=== PATIENT | male | born 1955 | race African-American/Black ===

== ENCOUNTER 2017-10-28 10:52 | Inpatient (IN) | payer OTHER ==
[2017-10-28 11:19] VITALS: BMI 29.3
--- NOTE | 2017-10-28 15:16 | HP ---
CIWA Score - CIWA Score Nausea/Vomitin Muscle Tremors: 3 Anxiety: 3 Agitation: 3 Paroxysmal Sweats: 1-Minimal Palms Moist Orientation: 0-Oriented Tacttile Disturbances: 1-Very Mild Itch/Numbness Auditory Disturbances: 1-Very Mild Visual Disturbances: 0-None Headache: 2-Mild CIWA-Ar Total Score: 17 Admission ROS BHS - HPI Chief Complaint: i need help to stop drinking alcohol Allergies/Adverse Reactions: Allergies Allergy/AdvReac Type Severity Reaction Status Date / Time No Known Allergies Allergy Verified 05/30/17 20:31 History of Present Illness: this 62 years old male with alcohol dependence,seeking detox,withdrawal symptom, last detox 05/30/17 to 06/03/17 type 2 dm,hypertension multiple admissions in detox,but relapsing longest period of sobriety 9 months - Ebola screening Have you traveled outside of the country in the last 21 days: Yes Have you been sick,other than usual withdrawal symptoms: No - Review of Systems Constitutional: Loss of Appetite, Malaise, Night Sweats, Changes in sleep, Weakness, Unintentional Wgt. Loss EENT: reports: Nose Congestion Respiratory: reports: No Symptoms reported Cardiac: reports: No Symptoms Reported GI: reports: Diarrhea, Nausea, Vomiting, Abdominal cramping : reports: No Symptoms Reported Musculoskeletal: reports: Back Pain, Muscle Pain Integumentary: reports: Dryness Neuro: reports: Headache, Tremors Hematology: reports: No Symptoms Reported Psychiatric: reports: No Sypmtoms Reported, Judgement Intact, Mood/Affect Appropiate, Orientated x3 Patient History - Patient Medical History Hx Anemia: No Hx Asthma: No Hx Chronic Obstructive Pulmonary Disease (COPD): No Hx Cancer: No Hx Cardiac Disorders: Yes (CHF) Hx Congestive Heart Failure: No Hx Hypertension: Yes (on meds.) Hx Hypercholesterolemia: Yes Hx Pacemaker: No HX Cerebrovascular Accident: No Hx Seizures: No Hx Dementia: No Hx Diabetes: Yes (diet controlled BGM 171mg/dl) Hx Gastrointestinal Disorders: No Hx Liver Disease: No Hx Genitourinary Disorders: No Hx Sexually Transmitted Disorders: No Hx Renal Disease (ESRD): No Hx Thyroid Disease: No Hx Human Immunodeficiency Virus (HIV): No (last 2016 negative) Hx Hepatitis C: No Hx Depression: No Hx Suicide Attempt: No Hx Bipolar Disorder: No Hx Schizophrenia: No Other Medical History: no suicidal,no homicidal - Patient Surgical History Past Surgical History: Yes Hx Neurologic Surgery: No Hx Cataract Extraction: No Hx Cardiac Surgery: No Hx Lung Surgery: No Hx Breast Surgery: No Hx Breast Biopsy: No Hx Abdominal Surgery: No Hx Appendectomy: No Hx Cholecystectomy: No Hx Genitourinary Surgery: No Hx Orthopedic Surgery: Yes (fracture patellar 1977 both) Hx Hysterectomy: No Anesthesia Reaction: No - PPD History Previous Implant?: Yes Documented Results: Negative w/proof Implanted On Prior [facility] Admission?: Yes Date: 06/01/17 Results: 0 mm PPD to be Administered?: No - Smoking Cessation Smoking history: Former smoker Have you smoked in the past 12 months: No If you are a former smoker, when did you quit?: 1999 Hx Chewing Tobacco Use: No Initiated information on smoking cessation: No - Substance & Tx. History Hx Alcohol Use: Yes Hx Substance Use: Yes Substance Use Type: Alcohol, Marijuana Hx Substance Use Treatment: Yes ([facility] 05/30/17 to 06/03/17) - Substances Abused Alcohol Route: Oral Frequency: Daily Amount used: 1 and 1/2 pints vodka Age of first use: 30 Date of Last Use: 10/28/17 Marijuana/Hashish Route: Smoking Frequency: Daily Amount used: 1 joint Age of first use: 18 Date of Last Use: 10/27/17 Family Disease History - Family Disease History Family Disease History: Other: Father (, unknown ), Mother (, [place] ) Admission Physical Exam S - Vital Signs Vital Signs: Vital Signs - 24 hr 10/28/17 11:16 Temperature 98 F Pulse Rate 83 Respiratory 20 Rate Blood Pressure 146/96 - Physical General Appearance: Yes: Moderate Distress, Tremorous, Irritable, Sweating, Anxious HEENTM: Yes: Normal ENT Inspection, AMILCAR, Pharynx Normal Respiratory: Yes: Lungs Clear, Normal Breath Sounds, No Respiratory Distress Breast: Yes: Within Normal Limits Cardiology: Yes: Within Normal Limits, Regular Rhythm, Regular Rate, S1, S2 Abdominal: Yes: Within Normal Limits, Normal Bowel Sounds, Non Tender, Flat, Soft Genitourinary: Yes: Within Normal Limits Back: Yes: Within Normal Limits Extremities: Yes: Normal Range of Motion, Tremors 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
[2017-10-28] MEDS ORDERED: P-EPHED 60MG/TRIPROLIDI 2.5MG TABLET PO PRN (15:24)
[2017-10-28] MEDS ORDERED: MAG HYDROX/AL HYDROX/SIMETH 30 ML UNIT-DOSE CUP PO PRN (15:24)
[2017-10-28] MEDS ORDERED: guaiFENesin/D-METHORPHAN HB 10 ML UNIT-DOSE CUPS PO PRN (15:24)
[2017-10-28] MEDS ORDERED: MAGNESIUM CITRATE 300 ML BOTTLE PO PRN (15:24)
[2017-10-28] MEDS ORDERED: MAGNESIUM HYDROX 2400MG/30ML ORAL SUSPENSION 30 ML CUP PO PRN (15:24)
[2017-10-28] MEDS ORDERED: IBUPROFEN 400 MG TABLET (FP) PO PRN (15:24)
[2017-10-28] MEDS ORDERED: ACETAMINOPHEN 325 MG TABLET (FP) PO PRN (15:24)
[2017-10-28] MEDS ORDERED: MENTHOL/PHENOL 1 EACH UD MM PRN (15:24)
[2017-10-28] MEDS ORDERED: chlordiazePOXIDE HCL 25 MG CAPSULE PO PRN (15:24)
[2017-10-28] MEDS ORDERED: LOPERAMIDE HCL 2 MG CAPSULE PO PRN (15:24)
--- NOTE | 2017-10-28 15:30 | PN ---
BHS Progress Note Note: patient also has bph,type 2 dm,hypertension
[2017-10-28] MEDS: chlordiazePOXIDE HCL 25 MG CAPSULE PO SCH ×2 (18:34→22:31)
[2017-10-28] MEDS: metoPROLOL SUCCINATE 25 MG TAB.SR.24H (FP) PO SCH (22:30)
[2017-10-28] MEDS: MELATONIN 5 MG TABLETS PO PRN (22:31)
[2017-10-28] MEDS: THIAMINE HCL 100 MG TABLET (FP) PO SCH (22:31)
[2017-10-28 23:27] LABS: URINE APPEARANCE CLEAR; URINE BILIRUBIN NEGATIVE (<2.0 mg/dL); URINE COLOR LTYELLOW; URINE GLUCOSE (UA) NEGATIVE (NEGATIVE); URINE KETONE NEGATIVE (NEGATIVE); URINE LEUK ESTERASE NEGATIVE (NEGATIVE); URINE NITRITE NEGATIVE (NEGATIVE); URINE PROTEIN NEGATIVE (NEGATIVE); URINE UROBILINOGEN NEGATIVE mg/dL (0.2-1.0)
[2017-10-28 23:31] LABS: URINE HYALINE CAST 2 /lpf
[2017-10-29] MEDS: chlordiazePOXIDE HCL 25 MG CAPSULE PO SCH ×4 (06:16→22:29)
[2017-10-29 09:51] LABS: HEMATOCRIT 38.2 % (35.4-49); HEMOGLOBIN 12.8 GM/dL (11.7-16.9); MCH 31.4 pg (25.7-33.7); MCHC 33.4 g/dl (32.0-35.9); MEAN PLT VOLUME 8.9 fl (7.5-11.1); PLATELET COUNT 162 K/MM3 (134-434); RBC 4.07 M/mm3 (4.00-5.60); RDW 15.7 % (11.9-15.9); WHITE BLOOD COUNT 4.3 K/mm3 (4.0-10.0)
[2017-10-29] MEDS: ALLOPURINOL 100 MG TABLET (FP) PO SCH (10:18)
[2017-10-29] MEDS: PRENATAL VITAMINS W/ FOLIC ACID TABLET (FP) PO SCH (10:18)
[2017-10-29] MEDS: LOSARTAN POTASSIUM 25 MG TABLET PO SCH (10:18)
[2017-10-29] MEDS: ASPIRIN 81 MG CHEWABLE TABLETS PO SCH (10:19)
[2017-10-29] MEDS: metoPROLOL SUCCINATE 25 MG TAB.SR.24H (FP) PO SCH ×2 (10:19→22:29)
[2017-10-29] MEDS: TAMSULOSIN HCL 0.4 MG CAP.ER.24H (FP) PO SCH (10:19)
[2017-10-29 10:22] LABS: CHLORIDE 101 mmol/L (98-107); POTASSIUM 4.5 mmol/L (3.5-5.1); SODIUM 134 mmol/L (136-145)
[2017-10-29 10:49] LABS: ALBUMIN 3.8 g/dl (3.4-5.0); ALK PHOS 110 U/L (45-117); ANION GAP 11 MMOL/L (8-16); BILIRUBIN,TOTAL 0.5 mg/dL (0.2-1.0); BLOOD UREA NITROGEN 23 mg/dL (7-18); CALCIUM 8.2 mg/dL (8.5-10.1); CO2 22 mmol/L (21-32); CREATININE 1.3 mg/dL (0.7-1.3); GLUCOSE,RANDOM 137 mg/dL (74-106); SGOT/AST 183 U/L (15-37); SGPT/ALT 110 U/L (12-78); TOT PROT 7.6 g/dl (6.4-8.2)
--- NOTE | 2017-10-29 15:01 | PN ---
S CIWA - CIWA Score Nausea/Vomitin-Mild Nausea/No Vomiting Muscle Tremors: 4-Moderate,w/Arms Extend Anxiety: 4-Mod. Anxious/Guarded Agitation: 4-Moderately Restless Paroxysmal Sweats: 1-Minimal Palms Moist Orientation: 0-Oriented Tacttile Disturbances: 0-None Auditory Disturbances: 0-None Visual Disturbances: 1-Very Mild Sensitivity Headache: 0-None Present CIWA-Ar Total Score: 15 BHS Progress Note (SOAP) Subjective: sweat low energy tremor gi distress joints pain Objective: 10/29/17 15:01 Vital Signs Temperature 97.7 F 10/29/17 13:42 Pulse Rate 82 10/29/17 13:42 Respiratory Rate 18 10/29/17 13:42 Blood Pressure 153/90 10/29/17 13:42 O2 Sat by Pulse Oximetry (%) 10/29/17 15:04 Laboratory Last Values WBC 4.3 K/mm3 (4.0-10.0) 10/29/17 06:00 RBC 4.07 M/mm3 (4.00-5.60) 10/29/17 06:00 Hgb 12.8 GM/dL (11.7-16.9) 10/29/17 06:00 Hct 38.2 % (35.4-49) 10/29/17 06:00 MCV 94.0 fl (80-96) 10/29/17 06:00 MCH 31.4 pg (25.7-33.7) 10/29/17 06:00 MCHC 33.4 g/dl (32.0-35.9) 10/29/17 06:00 RDW 15.7 % (11.9-15.9) 10/29/17 06:00 Plt Count 162 K/MM3 (134-434) D 10/29/17 06:00 MPV 8.9 fl (7.5-11.1) D 10/29/17 06:00 Sodium 134 mmol/L (136-145) L 10/29/17 06:00 Potassium 4.5 mmol/L (3.5-5.1) 10/29/17 06:00 Chloride 101 mmol/L (98-107) 10/29/17 06:00 Carbon Dioxide 22 mmol/L (21-32) 10/29/17 06:00 Anion Gap 11 MMOL/L (8-16) 10/29/17 06:00 BUN 23 mg/dL (7-18) H 10/29/17 06:00 Creatinine 1.3 mg/dL (0.7-1.3) 10/29/17 06:00 Creat Clearance w eGFR 55.94 (>60) 10/29/17 06:00 POC Glucometer 103 UNITS (80-120) 10/29/17 06:18 Random Glucose 137 mg/dL (74-106) H 10/29/17 06:00 Calcium 8.2 mg/dL (8.5-10.1) L 10/29/17 06:00 Total Bilirubin 0.5 mg/dL (0.2-1.0) 10/29/17 06:00 AST 183 U/L (15-37) H D 10/29/17 06:00 ALT 110 U/L (12-78) H D 10/29/17 06:00 Alkaline Phosphatase 110 U/L (45-117) 10/29/17 06:00 Total Protein 7.6 g/dl (6.4-8.2) 10/29/17 06:00 Albumin 3.8 g/dl (3.4-5.0) 10/29/17 06:00 Urine Color Ltyellow 10/28/17 17:33 Urine Appearance Clear 10/28/17 17:33 Urine pH 6.0 (5.0-8.0) 10/28/17 17:33 Ur Specific [place] 1.009 (1.001-1.035) 10/28/17 17:33 Urine Protein Negative (NEGATIVE) 10/28/17 17:33 Urine Glucose (UA) Negative (NEGATIVE) 10/28/17 17:33 Urine Ketones Negative (NEGATIVE) 10/28/17 17:33 Urine Blood 1+ (NEGATIVE) H 10/28/17 17:33 Urine Nitrite Negative (NEGATIVE) 10/28/17 17:33 Urine Bilirubin Negative (<2.0 mg/dL) 10/28/17 17:33 Urine Urobilinogen Negative mg/dL (0.2-1.0) 10/28/17 17:33 Ur Leukocyte Esterase Negative (NEGATIVE) 10/28/17 17:33 Urine WBC (Auto) None /hpf (3-5) 10/28/17 17:33 Urine RBC (Auto) <1 /hpf (0-3) 10/28/17 17:33 Hyaline Casts 2 /lpf 10/28/17 17:33 RPR Titer Nonreactive (NONREACTIVE) 10/29/17 06:00 lab noted repeat alt ast Assessment: 10/29/17 15:06 withdrawal sx 10/29/17 15:06 rule out alcohol induced liver enzyme elevation Plan: continue detox repeat ast alt
[2017-10-29] MEDS: MELATONIN 5 MG TABLETS PO PRN (22:29)
[2017-10-29] MEDS: THIAMINE HCL 100 MG TABLET (FP) PO SCH (22:29)
[2017-10-30] MEDS: chlordiazePOXIDE HCL 25 MG CAPSULE PO SCH ×2 (06:34→10:29)
[2017-10-30] MEDS: LOSARTAN POTASSIUM 25 MG TABLET PO SCH (10:29)
[2017-10-30] MEDS: ASPIRIN 81 MG CHEWABLE TABLETS PO SCH (10:29)
[2017-10-30] MEDS: PRENATAL VITAMINS W/ FOLIC ACID TABLET (FP) PO SCH (10:29)
[2017-10-30] MEDS: TAMSULOSIN HCL 0.4 MG CAP.ER.24H (FP) PO SCH (10:29)
[2017-10-30] MEDS: metoPROLOL SUCCINATE 25 MG TAB.SR.24H (FP) PO SCH ×2 (10:29→22:30)
[2017-10-30] MEDS: ALLOPURINOL 100 MG TABLET (FP) PO SCH (10:30)
[2017-10-30 10:57] LABS: SGOT/AST 137 U/L (15-37); SGPT/ALT 91 U/L (12-78)
--- NOTE | 2017-10-30 14:16 | PN ---
S CIWA - CIWA Score Nausea/Vomitin-Mild Nausea/No Vomiting Muscle Tremors: 3 Anxiety: 3 Agitation: 4-Moderately Restless Paroxysmal Sweats: 1-Minimal Palms Moist Orientation: 0-Oriented Tacttile Disturbances: 0-None Auditory Disturbances: 0-None Visual Disturbances: 0-None Headache: 0-None Present CIWA-Ar Total Score: 12 BHS Progress Note (SOAP) Subjective: restlessness trouble sleep at night sweat tremor Objective: 10/30/17 14:15 Vital Signs Temperature 98.8 F 10/30/17 14:11 Pulse Rate 82 10/30/17 14:11 Respiratory Rate 16 10/30/17 14:11 Blood Pressure 147/102 10/30/17 14:11 O2 Sat by Pulse Oximetry (%) Laboratory Last Values WBC 4.3 K/mm3 (4.0-10.0) 10/29/17 06:00 RBC 4.07 M/mm3 (4.00-5.60) 10/29/17 06:00 Hgb 12.8 GM/dL (11.7-16.9) 10/29/17 06:00 Hct 38.2 % (35.4-49) 10/29/17 06:00 MCV 94.0 fl (80-96) 10/29/17 06:00 MCH 31.4 pg (25.7-33.7) 10/29/17 06:00 MCHC 33.4 g/dl (32.0-35.9) 10/29/17 06:00 RDW 15.7 % (11.9-15.9) 10/29/17 06:00 Plt Count 162 K/MM3 (134-434) D 10/29/17 06:00 MPV 8.9 fl (7.5-11.1) D 10/29/17 06:00 Sodium 134 mmol/L (136-145) L 10/29/17 06:00 Potassium 4.5 mmol/L (3.5-5.1) 10/29/17 06:00 Chloride 101 mmol/L (98-107) 10/29/17 06:00 Carbon Dioxide 22 mmol/L (21-32) 10/29/17 06:00 Anion Gap 11 MMOL/L (8-16) 10/29/17 06:00 BUN 23 mg/dL (7-18) H 10/29/17 06:00 Creatinine 1.3 mg/dL (0.7-1.3) 10/29/17 06:00 Creat Clearance w eGFR 55.94 (>60) 10/29/17 06:00 POC Glucometer 168 UNITS (80-120) 10/30/17 06:35 Random Glucose 137 mg/dL (74-106) H 10/29/17 06:00 Calcium 8.2 mg/dL (8.5-10.1) L 10/29/17 06:00 Total Bilirubin 0.5 mg/dL (0.2-1.0) 10/29/17 06:00 AST 137 U/L (15-37) H D 10/30/17 07:40 ALT 91 U/L (12-78) H 10/30/17 07:40 Alkaline Phosphatase 110 U/L (45-117) 10/29/17 06:00 Total Protein 7.6 g/dl (6.4-8.2) 10/29/17 06:00 Albumin 3.8 g/dl (3.4-5.0) 10/29/17 06:00 Urine Color Ltyellow 10/28/17 17:33 Urine Appearance Clear 10/28/17 17:33 Urine pH 6.0 (5.0-8.0) 10/28/17 17:33 Ur Specific [place] 1.009 (1.001-1.035) 10/28/17 17:33 Urine Protein Negative (NEGATIVE) 10/28/17 17:33 Urine Glucose (UA) Negative (NEGATIVE) 10/28/17 17:33 Urine Ketones Negative (NEGATIVE) 10/28/17 17:33 Urine Blood 1+ (NEGATIVE) H 10/28/17 17:33 Urine Nitrite Negative (NEGATIVE) 10/28/17 17:33 Urine Bilirubin Negative (<2.0 mg/dL) 10/28/17 17:33 Urine Urobilinogen Negative mg/dL (0.2-1.0) 10/28/17 17:33 Ur Leukocyte Esterase Negative (NEGATIVE) 10/28/17 17:33 Urine WBC (Auto) None /hpf (3-5) 10/28/17 17:33 Urine RBC (Auto) <1 /hpf (0-3) 10/28/17 17:33 Hyaline Casts 2 /lpf 10/28/17 17:33 RPR Titer Nonreactive (NONREACTIVE) 10/29/17 06:00 lab noted Assessment: 10/30/17 14:16 withdrawal sx Plan: continue detox
[2017-10-30] MEDS: chlordiazePOXIDE 5 MG CAPSULE PO SCH ×2 (17:56→22:30)
[2017-10-30] MEDS: THIAMINE HCL 100 MG TABLET (FP) PO SCH (22:30)
[2017-10-31] MEDS: chlordiazePOXIDE 5 MG CAPSULE PO SCH ×2 (05:20→10:22)
[2017-10-31] MEDS: ASPIRIN 81 MG CHEWABLE TABLETS PO SCH (10:22)
[2017-10-31] MEDS: metoPROLOL SUCCINATE 25 MG TAB.SR.24H (FP) PO SCH ×2 (10:22→22:11)
[2017-10-31] MEDS: PRENATAL VITAMINS W/ FOLIC ACID TABLET (FP) PO SCH (10:22)
[2017-10-31] MEDS: ALLOPURINOL 100 MG TABLET (FP) PO SCH (10:22)
[2017-10-31] MEDS: LOSARTAN POTASSIUM 25 MG TABLET PO SCH (10:23)
--- NOTE | 2017-10-31 10:51 | PN ---
BHS Progress Note (SOAP) Subjective: no tremor less sweat sleep better at night no gi distress Objective: 10/31/17 10:51 Vital Signs Temperature 97.5 F L 10/31/17 09:24 Pulse Rate 80 10/31/17 09:24 Respiratory Rate 16 10/31/17 09:24 Blood Pressure 133/94 10/31/17 09:24 O2 Sat by Pulse Oximetry (%) Laboratory Last Values WBC 4.3 K/mm3 (4.0-10.0) 10/29/17 06:00 RBC 4.07 M/mm3 (4.00-5.60) 10/29/17 06:00 Hgb 12.8 GM/dL (11.7-16.9) 10/29/17 06:00 Hct 38.2 % (35.4-49) 10/29/17 06:00 MCV 94.0 fl (80-96) 10/29/17 06:00 MCH 31.4 pg (25.7-33.7) 10/29/17 06:00 MCHC 33.4 g/dl (32.0-35.9) 10/29/17 06:00 RDW 15.7 % (11.9-15.9) 10/29/17 06:00 Plt Count 162 K/MM3 (134-434) D 10/29/17 06:00 MPV 8.9 fl (7.5-11.1) D 10/29/17 06:00 Sodium 134 mmol/L (136-145) L 10/29/17 06:00 Potassium 4.5 mmol/L (3.5-5.1) 10/29/17 06:00 Chloride 101 mmol/L (98-107) 10/29/17 06:00 Carbon Dioxide 22 mmol/L (21-32) 10/29/17 06:00 Anion Gap 11 MMOL/L (8-16) 10/29/17 06:00 BUN 23 mg/dL (7-18) H 10/29/17 06:00 Creatinine 1.3 mg/dL (0.7-1.3) 10/29/17 06:00 Creat Clearance w eGFR 55.94 (>60) 10/29/17 06:00 POC Glucometer 143 UNITS (80-120) 10/31/17 05:19 Random Glucose 137 mg/dL (74-106) H 10/29/17 06:00 Calcium 8.2 mg/dL (8.5-10.1) L 10/29/17 06:00 Total Bilirubin 0.5 mg/dL (0.2-1.0) 10/29/17 06:00 AST 137 U/L (15-37) H D 10/30/17 07:40 ALT 91 U/L (12-78) H 10/30/17 07:40 Alkaline Phosphatase 110 U/L (45-117) 10/29/17 06:00 Total Protein 7.6 g/dl (6.4-8.2) 10/29/17 06:00 Albumin 3.8 g/dl (3.4-5.0) 10/29/17 06:00 Urine Color Ltyellow 10/28/17 17:33 Urine Appearance Clear 10/28/17 17:33 Urine pH 6.0 (5.0-8.0) 10/28/17 17:33 Ur Specific [place] 1.009 (1.001-1.035) 10/28/17 17:33 Urine Protein Negative (NEGATIVE) 10/28/17 17:33 Urine Glucose (UA) Negative (NEGATIVE) 10/28/17 17:33 Urine Ketones Negative (NEGATIVE) 10/28/17 17:33 Urine Blood 1+ (NEGATIVE) H 10/28/17 17:33 Urine Nitrite Negative (NEGATIVE) 10/28/17 17:33 Urine Bilirubin Negative (<2.0 mg/dL) 10/28/17 17:33 Urine Urobilinogen Negative mg/dL (0.2-1.0) 10/28/17 17:33 Ur Leukocyte Esterase Negative (NEGATIVE) 10/28/17 17:33 Urine WBC (Auto) None /hpf (3-5) 10/28/17 17:33 Urine RBC (Auto) <1 /hpf (0-3) 10/28/17 17:33 Hyaline Casts 2 /lpf 10/28/17 17:33 RPR Titer Nonreactive (NONREACTIVE) 10/29/17 06:00 lab noted discuss elevation of liver enzyme related to alcohol mususe Assessment: 10/31/17 10:52 mild withdrawal sx Plan: medically supervised detox
[2017-10-31] MEDS: TAMSULOSIN HCL 0.4 MG CAP.ER.24H (FP) PO SCH (11:00)
--- NOTE | 2017-10-31 14:22 | EKG ---
Test Reason : Blood Pressure : / mmHG Vent. Rate : 093 BPM Atrial Rate : 093 BPM P-R Int : 192 ms QRS Dur : 146 ms QT Int : 400 ms P-R-T Axes : 077 090 065 degrees QTc Int : 497 ms SINUS RHYTHM WITH OCCASIONAL PREMATURE VENTRICULAR COMPLEXES AND FUSION COMPLEXES RIGHT BUNDLE BRANCH BLOCK ABNORMAL ECG WHEN COMPARED WITH ECG OF 31-MAY-2017 08:49, FUSION COMPLEXES ARE NOW PRESENT PREMATURE VENTRICULAR COMPLEXES ARE NOW PRESENT Confirmed by MARISSA FERNANDO MD ([id number]) on 10/31/2017 2:22:11 PM Referred By: Confirmed By:MARISSA FERNANDO MD
[2017-10-31] MEDS: chlordiazePOXIDE HCL 10 MG CAPSULE PO SCH ×2 (20:09→22:12)
[2017-10-31] MEDS: MELATONIN 5 MG TABLETS PO PRN (22:12)
[2017-10-31] MEDS: THIAMINE HCL 100 MG TABLET (FP) PO SCH (22:12)
[2017-11-01] MEDS: chlordiazePOXIDE HCL 10 MG CAPSULE PO SCH (06:07)
[2017-11-01] MEDS: ASPIRIN 81 MG CHEWABLE TABLETS PO SCH (09:12)
[2017-11-01] MEDS: metoPROLOL SUCCINATE 25 MG TAB.SR.24H (FP) PO SCH (09:12)
[2017-11-01] MEDS: LOSARTAN POTASSIUM 25 MG TABLET PO SCH (09:12)
[2017-11-01] MEDS: TAMSULOSIN HCL 0.4 MG CAP.ER.24H (FP) PO SCH (09:12)
[2017-11-01] MEDS: PRENATAL VITAMINS W/ FOLIC ACID TABLET (FP) PO SCH (09:12)
[2017-11-01 09:33] VITALS: BP 159/102; PULSE 78; TEMP 98.1
--- NOTE | 2017-11-01 09:50 | DS ---
[facility] Detox Discharge Summary Admission Date: 10/28/17 Discharge Date: 11/01/17 - History Present History: Alcohol Dependence Additional Comments: 62 YEARS OLD MALE ADMITTED ON 10/28/17 FOR ALCOHOL WITHDRAWAL SX COMPLETED ALCOHOL DETOX REGIMEN TOLERATED WELL DENIES ALCOHOL WITHDRAWAL SX ALERT ORIENTED X 3 NO ACUTE DISTRESS [facility] - Physical Exam Results Vital Signs: Vital Signs Temperature 98.1 F 11/01/17 09:32 Pulse Rate 78 11/01/17 09:32 Respiratory Rate 20 11/01/17 09:32 Blood Pressure 159/102 11/01/17 09:32 O2 Sat by Pulse Oximetry (%) Pertinent Admission Physical Exam Findings: ALCOHOL WITHDRAWAL SX Vital Signs Temperature 98.1 F 11/01/17 09:32 Pulse Rate 78 11/01/17 09:32 Respiratory Rate 20 11/01/17 09:32 Blood Pressure 159/102 11/01/17 09:32 O2 Sat by Pulse Oximetry (%) Laboratory Last Values WBC 4.3 K/mm3 (4.0-10.0) 10/29/17 06:00 RBC 4.07 M/mm3 (4.00-5.60) 10/29/17 06:00 Hgb 12.8 GM/dL (11.7-16.9) 10/29/17 06:00 Hct 38.2 % (35.4-49) 10/29/17 06:00 MCV 94.0 fl (80-96) 10/29/17 06:00 MCH 31.4 pg (25.7-33.7) 10/29/17 06:00 MCHC 33.4 g/dl (32.0-35.9) 10/29/17 06:00 RDW 15.7 % (11.9-15.9) 10/29/17 06:00 Plt Count 162 K/MM3 (134-434) D 10/29/17 06:00 MPV 8.9 fl (7.5-11.1) D 10/29/17 06:00 Sodium 134 mmol/L (136-145) L 10/29/17 06:00 Potassium 4.5 mmol/L (3.5-5.1) 10/29/17 06:00 Chloride 101 mmol/L (98-107) 10/29/17 06:00 Carbon Dioxide 22 mmol/L (21-32) 10/29/17 06:00 Anion Gap 11 MMOL/L (8-16) 10/29/17 06:00 BUN 23 mg/dL (7-18) H 10/29/17 06:00 Creatinine 1.3 mg/dL (0.7-1.3) 10/29/17 06:00 Creat Clearance w eGFR 55.94 (>60) 10/29/17 06:00 POC Glucometer 169 UNITS (80-120) 11/01/17 06:08 Random Glucose 137 mg/dL (74-106) H 10/29/17 06:00 Calcium 8.2 mg/dL (8.5-10.1) L 10/29/17 06:00 Total Bilirubin 0.5 mg/dL (0.2-1.0) 10/29/17 06:00 AST 137 U/L (15-37) H D 10/30/17 07:40 ALT 91 U/L (12-78) H 10/30/17 07:40 Alkaline Phosphatase 110 U/L (45-117) 10/29/17 06:00 Total Protein 7.6 g/dl (6.4-8.2) 10/29/17 06:00 Albumin 3.8 g/dl (3.4-5.0) 10/29/17 06:00 Urine Color Ltyellow 10/28/17 17:33 Urine Appearance Clear 10/28/17 17:33 Urine pH 6.0 (5.0-8.0) 10/28/17 17:33 Ur Specific [place] 1.009 (1.001-1.035) 10/28/17 17:33 Urine Protein Negative (NEGATIVE) 10/28/17 17:33 Urine Glucose (UA) Negative (NEGATIVE) 10/28/17 17:33 Urine Ketones Negative (NEGATIVE) 10/28/17 17:33 Urine Blood 1+ (NEGATIVE) H 10/28/17 17:33 Urine Nitrite Negative (NEGATIVE) 10/28/17 17:33 Urine Bilirubin Negative (<2.0 mg/dL) 10/28/17 17:33 Urine Urobilinogen Negative mg/dL (0.2-1.0) 10/28/17 17:33 Ur Leukocyte Esterase Negative (NEGATIVE) 10/28/17 17:33 Urine WBC (Auto) None /hpf (3-5) 10/28/17 17:33 Urine RBC (Auto) <1 /hpf (0-3) 10/28/17 17:33 Hyaline Casts 2 /lpf 10/28/17 17:33 RPR Titer Nonreactive (NONREACTIVE) 10/29/17 06:00 LAB NOTED BP 159/102 PATIENT RECEIVED ANTIHYPERTENSANT BEFORE DISCHARGED TO [facility] - Treatment Hospital Course: Detox Protocol Followed, Detoxed Safely, Responded well, Discharged Condition Good, Rehab Referral Accepted Patient has Accepted a Rehab Referral to: [facility] - Medication Discharge Medications: Ambulatory Orders Aspirin [ASA -] 81 mg PO DAILY 10/28/17 Allopurinol [Zyloprim -] 100 mg PO DAILY #30 tablet 10/31/17 Losartan Potassium [Cozaar -] 25 mg PO DAILY #30 tablet 10/31/17 Metoprolol Succinate [Toprol XL -] 25 mg PO BID #60 tab.sr.24h 10/31/17 Tamsulosin HCl [Flomax -] 0.4 mg PO DAILY #30 cap.er.24h 10/31/17 - Diagnosis (1) Alcohol dependence with withdrawal Status: Acute Qualifiers: Complication of substance-induced condition: uncomplicated Qualified Code(s ): F10.230 - Alcohol dependence with withdrawal, uncomplicated (2) Hyperlipidemia Status: Chronic Qualifiers: Hyperlipidemia type: pure hypercholesterolemia Qualified Code(s): E78.00 - Pure hypercholesterolemia, unspecified; E78.0 - Pure hypercholesterolemia (3) Hypertension Status: Chronic Qualifiers: Hypertension type: essential hypertension Qualified Code(s): I10 - Essential (primary) hypertension - AMA Did Patient Leave Against Medical Advice: No
== END 2017-11-01 09:30 | disposition home or self-care (01) | DRG 775 ==
LOC: YASAS 10:52 → Y6N 15:20
PROC: HZ2ZZZZ Detoxification Services for Substance Abuse Treatment (ICD-10-PCS; principal; 2017-10-28)
DX: F10.230 Alcohol dependence with withdrawal, uncomplicated (principal); F12.20 Cannabis dependence, uncomplicated; I10 Essential (primary) hypertension; E11.9 Type 2 diabetes mellitus without complications; E78.00 Pure hypercholesterolemia, unspecified; N40.0 Benign prostatic hyperplasia without lower urinary tract symptoms; Z79.82 Long term (current) use of aspirin
CPT/HCPCS: 36415; 80053; 81003; 81015; 82962; 84450; 84460; 85027; 86593; 93005; 93010

== ENCOUNTER 2018-06-01 11:40 | Inpatient (IN) | payer OTHER ==
--- NOTE | 2018-06-01 14:30 | HP ---
CIWA Score Nausea/Vomitin-No Nausea/No Vomiting Muscle Tremors: 2 Anxiety: 2 Agitation: 1-Slight > Activity Paroxysmal Sweats: 2 Orientation: 0-Oriented Tacttile Disturbances: 1-Very Mild Itch/Numbness Auditory Disturbances: 0-None Visual Disturbances: 0-None Headache: 0-None Present CIWA-Ar Total Score: 8 - Admission Criteria OASAS Guidelines: Admission for Medically Managed Detox: Requires at least one of the followin. CIWA greater than 12 2. Seizures within the past 24 hours 3. Delirium tremens within the past 24 hours 4. Hallucinations within the past 24 hours 5. Acute intervention needed for co occurring medical disorder 6. Acute intervention needed for co occurring psychiatric disorder 7. Severe withdrawal that cannot be handled at a lower level of care (continued vomiting, continued diarrhea, abnormal vital signs) requiring intravenous medication and/or fluids 8. Patient presents the following: Acute intervention needed for co-occurring med or psych disorder Admission Criteria Met: Admission criteria met Admission ROS S - [facility] Chief Complaint: alcohol detox Allergies/Adverse Reactions: Allergies Allergy/AdvReac Type Severity Reaction Status Date / Time No Known Allergies Allergy Verified 06/01/18 13:58 History of Present Illness: Patient is a 62 yo male with hx of THC and alcohol dependence is here seeking detox d/t withdrawal symptoms, last detox [facility] September 2017, reports able to remain sober for three days upon discharge, and has been drinking about two pints per liquor per day. Reports 11 months of sobriety, but has been unable to maintain sobriety since December 2016. PMHX: DM II ( diet controlled), CHF, HTN, HDL, GOUT, BPH, Fatty Liver. Denies psychiatric hx. Denies suicidal / homicidal ideation. Denies hx of seizures, blackouts, falls or injuries. Exam Limitations: No Limitations - Ebola screening Have you traveled outside of the country in the last 21 days: No Have you had contact with anyone from an Ebola affected area: No Do you have a fever: No - Review of Systems Constitutional: Changes in sleep (unable to sleep without drinking, restless) EENT: reports: No Symptoms Reported Respiratory: reports: No Symptoms reported Cardiac: reports: No Symptoms Reported GI: reports: No Symptoms Reported : reports: No Symptoms Reported Musculoskeletal: reports: See HPI, Joint Pain Integumentary: reports: Dryness, Pruritus Neuro: reports: No Symptoms reported Endocrine: reports: Increased Thirst Hematology: reports: No Symptoms Reported Psychiatric: reports: Orientated x3 Other Systems: Reviewed and Negative Patient History - Patient Medical History Hx Anemia: No Hx Asthma: No Hx Chronic Obstructive Pulmonary Disease (COPD): No Hx Cancer: No Hx Cardiac Disorders: Yes (CHF) Hx Congestive Heart Failure: No Hx Hypertension: Yes (on meds.) Hx Hypercholesterolemia: Yes Hx Pacemaker: No HX Cerebrovascular Accident: No Hx Seizures: No Hx Dementia: No Hx Diabetes: Yes (diet controlled BGM 171mg/dl) Hx Gastrointestinal Disorders: No Hx Liver Disease: No Hx Genitourinary Disorders: Yes (BPH ) Hx Sexually Transmitted Disorders: No Hx Renal Disease (ESRD): No Hx Thyroid Disease: No Hx Human Immunodeficiency Virus (HIV): No (last 2016 negative) Hx Hepatitis C: No Hx Depression: No Hx Suicide Attempt: No Hx Bipolar Disorder: No Hx Schizophrenia: No - Patient Surgical History Past Surgical History: Yes Hx Neurologic Surgery: No Hx Cataract Extraction: No Hx Cardiac Surgery: No Hx Lung Surgery: No Hx Breast Surgery: No Hx Breast Biopsy: No Hx Abdominal Surgery: No Hx Appendectomy: No Hx Cholecystectomy: No Hx Genitourinary Surgery: No Hx Orthopedic Surgery: Yes (fracture patellar 1977 both) Hx Hysterectomy: No Anesthesia Reaction: No - PPD History Previous Implant?: No Documented Results: Negative w/proof Date: 06/01/17 Results: 0 mm PPD to be Administered?: Yes - Smoking Cessation Smoking history: Former smoker Have you smoked in the past 12 months: No If you are a former smoker, when did you quit?: 1999 Hx Chewing Tobacco Use: No Initiated information on smoking cessation: No - Substance & Tx. History Hx Alcohol Use: Yes Hx Substance Use: Yes Substance Use Type: Alcohol, Marijuana Hx Substance Use Treatment: Yes (last detox [facility] September 2017) - Substances abused Alcohol Substance route: Oral Frequency: Daily Amount used: 2 pt. vodka Age of first use: 30 Date of last use: 06/01/18 Family Disease History - Family Disease History Family Disease History: Other: Father (, unknown ), Mother (, [place] ) Admission Physical Exam BHS - Vital Signs Vital Signs: Vital Signs - 24 hr 06/01/18 14:02 Temperature 98.1 F Pulse Rate 80 Respiratory 18 Rate Blood Pressure 120/83 - Physical General Appearance: Yes: Appropriately Dressed, Alcohol on Breath, Thin, Anxious HEENTM: Yes: EOMI, Hearing grossly Normal, Normal ENT Inspection, Normocephalic , Normal Voice, AMILCAR, Pharynx Normal, Tm's normal, Other (cheilitis,) Respiratory: Yes: Chest Non-Tender, Lungs Clear, Normal Breath Sounds, No Respiratory Distress, No Accessory Muscle Use Neck: Yes: Within Normal Limits Breast: Yes: Breast Exam Deferred Cardiology: Yes: Regular Rhythm, Regular Rate Abdominal: Yes: Normal Bowel Sounds, Non Tender, Soft, Protuberent Genitourinary: Yes: Within Normal Limits Back: Yes: Normal Inspection Neurological: Yes: stem teacher II-XII NML intact, Fully Oriented, Alert, Motor Strength 5/5, Depressed Affect Integumentary: Yes: Normal Color, Dry, Warm, Clammy Lymphatic: Yes: Within Normal Limits - Diagnostic (1) CHF (congestive heart failure) Current Visit: Yes Status: Chronic Qualifiers: Heart failure type: unspecified Heart failure chronicity: chronic Qualified Code(s): I50.9 - Heart failure, unspecified (2) Gout Current Visit: Yes Status: Chronic Qualifiers: Gout site: unspecified site (3) Fatty liver Current Visit: Yes Status: Chronic (4) Alcohol dependence with withdrawal Current Visit: Yes Status: Acute Qualifiers: Complication of substance-induced condition: uncomplicated Qualified Code(s ): F10.230 - Alcohol dependence with withdrawal, uncomplicated (5) Cannabis dependence Current Visit: Yes Status: Acute (6) Hyperlipidemia Current Visit: No Status: Chronic Qualifiers: Hyperlipidemia type: pure hypercholesterolemia Qualified Code(s): E78.00 - Pure hypercholesterolemia, unspecified; E78.0 - Pure hypercholesterolemia (7) Hypertension Current Visit: Yes Status: Chronic Qualifiers: Hypertension type: essential hypertension Qualified Code(s): I10 - Essential (primary) hypertension (8) At risk for dehydration due to poor fluid intake Current Visit: Yes Status: Acute (9) BPH (benign prostatic hyperplasia) Current Visit: Yes Status: Chronic Qualifiers: Lower urinary tract symptom presence: unspecified whether lower urinary tract symptoms present Qualified Code(s): N40.0 - Benign prostatic hyperplasia without lower urinary tract symptoms Cleared for Admission [facility] - Detox or Rehab [facility] Level of Care: Medically Managed (DETOX REGIME : ATIVAN HX FATTY LIVER) Screened but not Admitted - Documentation of Visit Screened but not Admitted: No Breathalyzer - Breathalyzer Breathalyzer: 0.193 Urine Drug Screen - Test Device Lot number: [id number] Expiration date: 05/28/19 - Control Is test valid?: Yes - Results Drug screen NEGATIVE: No Urine drug screen results: THC-Marijuana Inpatient Rehab Admission - Rehab Decision to Admit Inpatient rehab admission?: No
[2018-06-01] MEDS ORDERED: MENTHOL/PHENOL 1 EACH UD MM PRN (14:57)
[2018-06-01] MEDS ORDERED: MELATONIN 5 MG TABLETS PO PRN (14:57)
[2018-06-01] MEDS ORDERED: ACETAMINOPHEN 325 MG TABLET (FP) PO PRN ×2 (14:57)
[2018-06-01] MEDS ORDERED: LORazepam 1 MG TABLET PO PRN (14:57)
[2018-06-01] MEDS ORDERED: MAGNESIUM CITRATE 300 ML BOTTLE PO PRN (14:57)
[2018-06-01] MEDS ORDERED: MAGNESIUM HYDROX 2400MG/30ML ORAL SUSPENSION 30 ML CUP PO PRN (14:57)
[2018-06-01] MEDS ORDERED: METHOCARBAMOL 500 MG TABLET PO PRN (14:57)
[2018-06-01] MEDS ORDERED: IBUPROFEN 400 MG TABLET (FP) PO PRN (14:57)
[2018-06-01] MEDS ORDERED: BISMUTH SUBSALICYLATE 524 MG/30 ML UD PO PRN (14:57)
[2018-06-01] MEDS ORDERED: MAG HYDROX/AL HYDROX/SIMETH 30 ML UNIT-DOSE CUP PO PRN (14:57)
[2018-06-01] MEDS ORDERED: LORazepam 2 MG TABLET PO ONE (17:00)
[2018-06-01] MEDS: LORazepam 2 MG TABLET PO SCH (17:48)
[2018-06-01] MEDS: ATORVASTATIN CA 80 MG TABLET (FP) PO SCH (22:14)
[2018-06-01] MEDS: THIAMINE HCL 100 MG TABLET (FP) PO SCH (22:14)
[2018-06-01] MEDS: metoPROLOL SUCCINATE 25 MG TAB.SR.24H (FP) PO SCH (22:14)
[2018-06-01] MEDS ORDERED: LORazepam 1 MG TABLET PO SCH (23:15)
[2018-06-01] MEDS: LORazepam 1 MG TABLET PO SCH (23:39)
[2018-06-02] MEDS: LORazepam 2 MG TABLET PO SCH (00:07)
[2018-06-02] MEDS: LORazepam 1 MG TABLET PO SCH ×4 (05:24→22:12)
[2018-06-02 10:22] LABS: HEMATOCRIT 34.4 % (35.4-49); HEMOGLOBIN 11.5 GM/dL (11.7-16.9); MCH 32.9 pg (25.7-33.7); MCHC 33.4 g/dl (32.0-35.9); MEAN CELL VOLUME 98.5 fl (80-96); MEAN PLT VOLUME 8.9 fl (7.5-11.1); PLATELET COUNT 135 K/MM3 (134-434); RBC 3.49 M/mm3 (4.00-5.60); RDW 14.1 % (11.9-15.9); WHITE BLOOD COUNT 4.1 K/mm3 (4.0-10.0)
[2018-06-02] MEDS: ALLOPURINOL 100 MG TABLET (FP) PO SCH (10:36)
[2018-06-02] MEDS: LOSARTAN POTASSIUM 25 MG TABLET PO SCH (10:36)
[2018-06-02] MEDS: ASPIRIN 81 MG CHEWABLE TABLETS PO SCH (10:36)
[2018-06-02] MEDS: PRENATAL VITAMINS W/ FOLIC ACID TABLET (FP) PO SCH (10:37)
[2018-06-02] MEDS: metoPROLOL SUCCINATE 25 MG TAB.SR.24H (FP) PO SCH ×2 (10:37→22:12)
[2018-06-02] MEDS: TAMSULOSIN HCL 0.4 MG CAP PO SCH (10:37)
[2018-06-02 10:38] LABS: ALBUMIN 3.6 g/dl (3.4-5.0); ALK PHOS 139 U/L (45-117); ANION GAP 4 MMOL/L (8-16); BILIRUBIN,TOTAL 1.3 mg/dL (0.2-1); BLOOD UREA NITROGEN 13 mg/dL (7-18); CALCIUM 8.4 mg/dL (8.5-10.1); CHLORIDE 99 mmol/L (98-107); CO2 30 mmol/L (21-32); CREATININE 0.8 mg/dL (0.55-1.3); GLUCOSE,RANDOM 97 mg/dL (74-106); POTASSIUM 3.9 mmol/L (3.5-5.1); SGOT/AST 197 U/L (15-37); SGPT/ALT 68 U/L (13-61); SODIUM 133 mmol/L (136-145); TOT PROT 7.3 g/dl (6.4-8.2)
[2018-06-02] MEDS ORDERED: PNEUMOC 13-VAL CONJ-DIP CRM/PF 0.5 ML DISP.SYRIN IM ONE (12:00)
[2018-06-02] MEDS ORDERED: PNEUMOCOCCAL 23 VACCINE 0.5 ML VIAL IM ONE (12:00)
--- NOTE | 2018-06-02 12:25 | EKG ---
Test Reason : Blood Pressure : / mmHG Vent. Rate : 101 BPM Atrial Rate : 101 BPM P-R Int : 170 ms QRS Dur : 150 ms QT Int : 384 ms P-R-T Axes : 068 098 058 degrees QTc Int : 497 ms SINUS TACHYCARDIA RIGHT BUNDLE BRANCH BLOCK ABNORMAL ECG WHEN COMPARED WITH ECG OF 28-OCT-2017 17:43, FUSION COMPLEXES ARE NO LONGER PRESENT PREMATURE VENTRICULAR COMPLEXES ARE NO LONGER PRESENT NONSPECIFIC T WAVE ABNORMALITY NOW EVIDENT IN INFERIOR LEADS Confirmed by LIZZ TIJERINA MD ([id number]) on 06/02/2018 12:24:57 PM Referred By: Confirmed By:LIZZ TIJERINA MD
--- NOTE | 2018-06-02 13:03 | PN ---
S CIWA - CIWA Score Nausea/Vomitin Muscle Tremors: 2 Anxiety: 2 Agitation: 2 Paroxysmal Sweats: 1-Minimal Palms Moist Orientation: 0-Oriented Tacttile Disturbances: 1-Very Mild Itch/Numbness Auditory Disturbances: 1-Very Mild Visual Disturbances: 0-None Headache: 2-Mild CIWA-Ar Total Score: 13 BHS Progress Note (SOAP) Subjective: alert,irritable,anxious,interrupted sleep,tremor Objective: 06/02/18 12:59 Vital Signs Temperature 98.6 F 06/02/18 10:20 Pulse Rate 109 H 06/02/18 10:20 Respiratory Rate 16 06/02/18 10:20 Blood Pressure 131/93 06/02/18 10:20 O2 Sat by Pulse Oximetry (%) 06/02/18 13:00 ekg sinus tachycardia 101/min,rbbb, qt/qtc 384/497 no chrst pain,no sob,no dizziness Laboratory Last Values WBC 4.1 K/mm3 (4.0-10.0) 06/02/18 07:00 RBC 3.49 M/mm3 (4.00-5.60) L 06/02/18 07:00 Hgb 11.5 GM/dL (11.7-16.9) L 06/02/18 07:00 Hct 34.4 % (35.4-49) L 06/02/18 07:00 MCV 98.5 fl (80-96) H 06/02/18 07:00 MCH 32.9 pg (25.7-33.7) 06/02/18 07:00 MCHC 33.4 g/dl (32.0-35.9) 06/02/18 07:00 RDW 14.1 % (11.9-15.9) D 06/02/18 07:00 Plt Count 135 K/MM3 (134-434) 06/02/18 07:00 MPV 8.9 fl (7.5-11.1) 06/02/18 07:00 Sodium 133 mmol/L (136-145) L 06/02/18 07:00 Potassium 3.9 mmol/L (3.5-5.1) 06/02/18 07:00 Chloride 99 mmol/L (98-107) 06/02/18 07:00 Carbon Dioxide 30 mmol/L (21-32) 06/02/18 07:00 Anion Gap 4 MMOL/L (8-16) L 06/02/18 07:00 BUN 13 mg/dL (7-18) 06/02/18 07:00 Creatinine 0.8 mg/dL (0.55-1.3) 06/02/18 07:00 Creat Clearance w eGFR 97.95 (>60) 06/02/18 07:00 Random Glucose 97 mg/dL (74-106) 06/02/18 07:00 Calcium 8.4 mg/dL (8.5-10.1) L 06/02/18 07:00 Total Bilirubin 1.3 mg/dL (0.2-1) H 06/02/18 07:00 AST 197 U/L (15-37) H 06/02/18 07:00 ALT 68 U/L (13-61) H 06/02/18 07:00 Alkaline Phosphatase 139 U/L (45-117) H 06/02/18 07:00 Total Protein 7.3 g/dl (6.4-8.2) 06/02/18 07:00 Albumin 3.6 g/dl (3.4-5.0) 06/02/18 07:00 RPR Titer Nonreactive (NONREACTIVE) 06/02/18 07:00 Assessment: 06/02/18 13:02 withdrawal symptom Plan: continue detox,d/c tylenol,repeat ast,alt,inr in am
[2018-06-02] MEDS: THIAMINE HCL 100 MG TABLET (FP) PO SCH (22:12)
[2018-06-02] MEDS: ATORVASTATIN CA 80 MG TABLET (FP) PO SCH (22:12)
[2018-06-02] MEDS: hydrOXYzine PAMOATE 25 MG CAPSULE (FP) PO PRN (22:14)
[2018-06-03] MEDS: LORazepam 1 MG TABLET PO SCH ×2 (05:45→10:30)
[2018-06-03 10:09] LABS: SGOT/AST 142 U/L (15-37)
[2018-06-03 10:18] LABS: INR 1.06 (0.83-1.09); PROTHROMBIN TIME (PATIENT) 12.5 SEC (9.7-13.0)
[2018-06-03 10:28] LABS: SGPT/ALT 64 U/L (13-61)
[2018-06-03] MEDS: TAMSULOSIN HCL 0.4 MG CAP PO SCH (10:30)
[2018-06-03] MEDS: ASPIRIN 81 MG CHEWABLE TABLETS PO SCH (10:30)
[2018-06-03] MEDS: metoPROLOL SUCCINATE 25 MG TAB.SR.24H (FP) PO SCH ×2 (10:30→22:35)
[2018-06-03] MEDS: ALLOPURINOL 100 MG TABLET (FP) PO SCH (10:30)
[2018-06-03] MEDS: PRENATAL VITAMINS W/ FOLIC ACID TABLET (FP) PO SCH (10:30)
[2018-06-03] MEDS: LOSARTAN POTASSIUM 25 MG TABLET PO SCH (10:30)
--- NOTE | 2018-06-03 14:16 | PN ---
[facility] CIWA - CIWA Score Nausea/Vomitin-No Nausea/No Vomiting Muscle Tremors: 3 Anxiety: 3 Agitation: 0-Normal Activity Paroxysmal Sweats: 2 Orientation: 0-Oriented Tacttile Disturbances: 2-Mild Itch/Numbness/Burn Auditory Disturbances: 1-Very Mild Visual Disturbances: 2-Mild Sensitivity Headache: 0-None Present CIWA-Ar Total Score: 13 S Progress Note (SOAP) Subjective: Tremors, Sweating, Interrupted Sleep, Anxious. Objective: PATIENT A & O X 3, OBSERVED AMBULATING ON UNIT. IN NO ACUTE DISTRESS. 06/03/18 14:15 Vital Signs Temperature 97.9 F 06/03/18 13:24 Pulse Rate 96 H 06/03/18 13:24 Respiratory Rate 20 06/03/18 13:24 Blood Pressure 138/102 H 06/03/18 13:24 O2 Sat by Pulse Oximetry (%) PREVIOUS BP'S GENERALLY WITHIN NORMAL RANGE. WILL CONTINUE TO MONITOR BP. Laboratory Tests 06/02/18 06/02/18 06/02/18 07:00 07:00 07:00 WBC 4.1 RBC 3.49 L Hgb 11.5 L Hct 34.4 L MCV 98.5 H MCH 32.9 MCHC 33.4 RDW 14.1 D Plt Count 135 MPV 8.9 PT with INR INR Sodium 133 L Potassium 3.9 Chloride 99 Carbon Dioxide 30 Anion Gap 4 L BUN 13 Creatinine 0.8 Creat Clearance w eGFR 97.95 Random Glucose 97 Calcium 8.4 L Total Bilirubin 1.3 H AST 197 H ALT 68 H Alkaline Phosphatase 139 H Total Protein 7.3 Albumin 3.6 RPR Titer Nonreactive 06/03/18 06/03/18 06/03/18 07:45 07:45 07:45 WBC RBC Hgb Hct MCV MCH MCHC RDW Plt Count MPV PT with INR 12.50 INR 1.06 Sodium Potassium Chloride Carbon Dioxide Anion Gap BUN Creatinine Creat Clearance w eGFR Random Glucose Calcium Total Bilirubin AST 142 H ALT 64 H Cancelled Alkaline Phosphatase Total Protein Albumin RPR Titer LABS NOTED. RESULTS OF REPEAT AST AND ALT LEVELS NOTED. MILD IMPROVEMENT NOTED IN BOTH LEVELS. 06/03/18 14:16 Assessment: 06/03/18 14:17 WITHDRAWAL SYMPTOMS. ELEVATED LIVER ENZYMES. ANEMIA (MACROCYTIC). Plan: CONTINUE DETOX. INCREASE DAILY PO FLUID INTAKE. PATIENT IS CURRENTLY RECEIVING DAILY MVI CONTAINING B VITAMINS AND IRON WHILE ADMITTED FOR DETOX.
[2018-06-03] MEDS ORDERED: LORazepam 0.5 MG TABLET PO PRN (17:00)
[2018-06-03] MEDS: LORazepam 0.5 MG TABLET PO SCH ×2 (17:53→22:35)
[2018-06-03] MEDS: THIAMINE HCL 100 MG TABLET (FP) PO SCH (22:35)
[2018-06-03] MEDS: ATORVASTATIN CA 80 MG TABLET (FP) PO SCH (22:35)
[2018-06-03] MEDS: hydrOXYzine PAMOATE 25 MG CAPSULE (FP) PO PRN (22:36)
[2018-06-04] MEDS: LORazepam 0.5 MG TABLET PO SCH (05:39)
[2018-06-04 05:59] VITALS: BP 126/80; PULSE 76; TEMP 98.2
--- NOTE | 2018-06-04 09:05 | DS ---
[facility] Detox Discharge Summary Admission Date: 06/01/18 Discharge Date: 06/04/18 - History Present History: Alcohol Dependence Additional Comments: 62 years old male admitted on 06/01/18 for alcohol withdrawal stabilization completed alcohol detox regimen [facility] Pertinent Past History: keep medication list in wallet bring in medication list and lab report to follow up care appointment - Physical Exam Results Vital Signs: Vital Signs Temperature 98.2 F 06/04/18 05:58 Pulse Rate 76 06/04/18 05:58 Respiratory Rate 18 06/04/18 06:30 Blood Pressure 126/80 06/04/18 05:58 O2 Sat by Pulse Oximetry (%) Pertinent Admission Physical Exam Findings: alcohol withdrawal sx Laboratory Last Values WBC 4.1 K/mm3 (4.0-10.0) 06/02/18 07:00 RBC 3.49 M/mm3 (4.00-5.60) L 06/02/18 07:00 Hgb 11.5 GM/dL (11.7-16.9) L 06/02/18 07:00 Hct 34.4 % (35.4-49) L 06/02/18 07:00 MCV 98.5 fl (80-96) H 06/02/18 07:00 MCH 32.9 pg (25.7-33.7) 06/02/18 07:00 MCHC 33.4 g/dl (32.0-35.9) 06/02/18 07:00 RDW 14.1 % (11.9-15.9) D 06/02/18 07:00 Plt Count 135 K/MM3 (134-434) 06/02/18 07:00 MPV 8.9 fl (7.5-11.1) 06/02/18 07:00 PT with INR 12.50 SEC (9.7-13.0) 06/03/18 07:45 INR 1.06 (0.83-1.09) 06/03/18 07:45 Sodium 133 mmol/L (136-145) L 06/02/18 07:00 Potassium 3.9 mmol/L (3.5-5.1) 06/02/18 07:00 Chloride 99 mmol/L (98-107) 06/02/18 07:00 Carbon Dioxide 30 mmol/L (21-32) 06/02/18 07:00 Anion Gap 4 MMOL/L (8-16) L 06/02/18 07:00 BUN 13 mg/dL (7-18) 06/02/18 07:00 Creatinine 0.8 mg/dL (0.55-1.3) 06/02/18 07:00 Creat Clearance w eGFR 97.95 (>60) 06/02/18 07:00 Random Glucose 97 mg/dL (74-106) 06/02/18 07:00 Calcium 8.4 mg/dL (8.5-10.1) L 06/02/18 07:00 Total Bilirubin 1.3 mg/dL (0.2-1) H 06/02/18 07:00 AST 142 U/L (15-37) H 06/03/18 07:45 ALT 64 U/L (13-61) H 06/03/18 07:45 Alkaline Phosphatase 139 U/L (45-117) H 06/02/18 07:00 Total Protein 7.3 g/dl (6.4-8.2) 06/02/18 07:00 Albumin 3.6 g/dl (3.4-5.0) 06/02/18 07:00 RPR Titer Nonreactive (NONREACTIVE) 06/02/18 07:00 lab noted - Treatment Hospital Course: Detox Protocol Followed, Detoxed Safely, Responded well, Discharged Condition Good, Rehab Referral Accepted Patient has Accepted a Rehab Referral to: [facility] - Medication Discharge Medications: Ambulatory Orders Aspirin [ASA -] 81 mg PO DAILY 10/28/17 Allopurinol [Zyloprim -] 100 mg PO DAILY #30 tablet 10/31/17 Losartan Potassium [Cozaar -] 25 mg PO DAILY #30 tablet 10/31/17 Metoprolol Succinate [Toprol XL -] 25 mg PO BID #60 tab.sr.24h 10/31/17 Tamsulosin HCl [Flomax -] 0.4 mg PO DAILY #30 cap.er.24h 10/31/17 Atorvastatin Ca [Lipitor] 80 mg PO HS 06/01/18 - Diagnosis (1) Alcohol dependence with withdrawal Current Visit: Yes Status: Acute Qualifiers: Complication of substance-induced condition: uncomplicated Qualified Code(s ): F10.230 - Alcohol dependence with withdrawal, uncomplicated (2) BPH (benign prostatic hyperplasia) Current Visit: Yes Status: Chronic Qualifiers: Lower urinary tract symptom presence: unspecified whether lower urinary tract symptoms present Qualified Code(s): N40.0 - Benign prostatic hyperplasia without lower urinary tract symptoms (3) CHF (congestive heart failure) Current Visit: Yes Status: Chronic Qualifiers: Heart failure type: unspecified Heart failure chronicity: chronic Qualified Code(s): I50.9 - Heart failure, unspecified (4) Hyperlipidemia Current Visit: Yes Status: Chronic Qualifiers: Hyperlipidemia type: pure hypercholesterolemia Qualified Code(s): E78.00 - Pure hypercholesterolemia, unspecified; E78.0 - Pure hypercholesterolemia - AMA Did Patient Leave Against Medical Advice: No
== END 2018-06-04 10:36 | disposition home or self-care (01) | DRG 775 ==
LOC: YASAS 11:40 → Y3N 15:42
PROVIDERS: ADMIT Surgery; ATTEND Surgery
PROC: HZ2ZZZZ Detoxification Services for Substance Abuse Treatment (ICD-10-PCS; principal; 2018-06-01)
DX: F10.230 Alcohol dependence with withdrawal, uncomplicated (principal); F12.20 Cannabis dependence, uncomplicated; I10 Essential (primary) hypertension; I50.9 Heart failure, unspecified; M10.9 Gout, unspecified; N40.0 Benign prostatic hyperplasia without lower urinary tract symptoms; E11.9 Type 2 diabetes mellitus without complications; Z79.84 Long term (current) use of oral hypoglycemic drugs; K76.0 Fatty (change of) liver, not elsewhere classified; R94.5 Abnormal results of liver function studies; Z91.89 Other specified personal risk factors, not elsewhere classified
CPT/HCPCS: 36415; 80053; 84450; 84460; 85027; 85610; 86593; 93005; 93010

== ENCOUNTER 2020-11-25 15:04 | Inpatient (IN) | payer BC ==
[2020-11-25] MEDS ORDERED: MAGNESIUM CITRATE 300 ML BOTTLE PO PRN (18:52)
[2020-11-25] MEDS ORDERED: MENTHOL/PHENOL 1 EACH UD MM PRN (18:52)
[2020-11-25] MEDS ORDERED: BISMUTH SUBSALICYLATE 524 MG/30 ML PO PRN (18:52)
[2020-11-25] MEDS ORDERED: ONDANSETRON *ODT* 4 MG TABLET SL PRN (18:52)
[2020-11-25] MEDS ORDERED: METHOCARBAMOL 500 MG TABLET PO PRN (18:52)
[2020-11-25] MEDS ORDERED: ACETAMINOPHEN 325 MG TABLET (FP) PO PRN ×2 (18:52)
[2020-11-25] MEDS ORDERED: MAG HYDROX/AL HYDROX/SIMETH 30 ML UNIT-DOSE CUP PO PRN (18:52)
[2020-11-25] MEDS ORDERED: MAGNESIUM HYDROX 2400MG/30ML ORAL SUSPENSION 30 ML CUP PO PRN (18:52)
[2020-11-25 23:01] VITALS: BMI 21.1
[2020-11-25] MEDS: MELATONIN 5 MG TABLETS PO SCH (23:53)
[2020-11-25] MEDS: THIAMINE HCL 100 MG TABLET (FP) PO SCH (23:53)
[2020-11-26] MEDS: metoPROLOL SUCCINATE 25 MG TAB.SR.24H (FP) PO SCH ×3 (00:28→23:25)
[2020-11-26] MEDS ORDERED: LORazepam 1 MG TABLET PO PRN (08:43)
[2020-11-26] MEDS ORDERED: TRIMETHOBENZAMIDE HCL 200MG/2ML INJ IM PRN (08:45)
[2020-11-26] MEDS ORDERED: LORazepam 2 MG TABLET PO ONE (09:00)
[2020-11-26] MEDS: PRENATAL VITAMINS W/ FOLIC ACID TABLET (FP) PO SCH (10:23)
[2020-11-26] MEDS: ALLOPURINOL 100 MG TABLET (FP) PO SCH (10:24)
[2020-11-26] MEDS: LOSARTAN POTASSIUM 25 MG TABLET PO SCH (10:24)
[2020-11-26] MEDS: TAMSULOSIN HCL 0.4 MG CAP PO SCH (10:24)
[2020-11-26] MEDS: LORazepam 2 MG TABLET PO SCH ×3 (10:27→22:15)
[2020-11-26 10:39] LABS: HEMATOCRIT 31.6 % (35.4-49); HEMOGLOBIN 10.7 GM/dL (11.7-16.9); MCH 34.6 pg (25.7-33.7); MCHC 33.9 g/dl (32.0-35.9); MEAN CELL VOLUME 102.1 fl (80-96); MEAN PLT VOLUME 8.2 fl (7.5-11.1); PLATELET COUNT 116 10^3/uL (134-434); RDW 14.8 % (11.9-15.9); WHITE BLOOD COUNT 4.1 K/mm3 (4.0-10.0)
[2020-11-26 10:47] LABS: CALCIUM 9.1 mg/dL (8.5-10.1)
[2020-11-26 10:48] LABS: ALBUMIN 3.5 g/dl (3.4-5.0); BLOOD UREA NITROGEN 5.8 mg/dL (7-18)
[2020-11-26 10:51] LABS: CREATININE 0.6 mg/dL (0.55-1.3)
[2020-11-26 10:52] LABS: BILIRUBIN,TOTAL 2.3 mg/dL (0.2-1); TOT PROT 8.4 g/dl (6.4-8.2)
[2020-11-26] MEDS ORDERED: PNEUMOC 13-VAL CONJ-DIP CRM/PF 0.5 ML DISP.SYRIN IM ONE (12:00)
[2020-11-26] MEDS: IBUPROFEN 400 MG TABLET (FP) PO PRN (18:12)
[2020-11-26] MEDS: THIAMINE HCL 100 MG TABLET (FP) PO SCH (22:15)
[2020-11-26] MEDS: MELATONIN 5 MG TABLETS PO SCH (22:15)
[2020-11-27] MEDS: LORazepam 2 MG TABLET PO SCH ×4 (05:46→22:32)
[2020-11-27] MEDS: TAMSULOSIN HCL 0.4 MG CAP PO SCH (08:21)
[2020-11-27] MEDS: PRENATAL VITAMINS W/ FOLIC ACID TABLET (FP) PO SCH (10:36)
[2020-11-27] MEDS: metoPROLOL SUCCINATE 25 MG TAB.SR.24H (FP) PO SCH ×2 (10:36→22:32)
[2020-11-27] MEDS: ALLOPURINOL 100 MG TABLET (FP) PO SCH (10:36)
[2020-11-27] MEDS: LOSARTAN POTASSIUM 25 MG TABLET PO SCH (10:36)
[2020-11-27] MEDS: THIAMINE HCL 100 MG TABLET (FP) PO SCH (22:32)
[2020-11-27] MEDS: MELATONIN 5 MG TABLETS PO SCH (22:33)
[2020-11-28] MEDS: LORazepam 1 MG TABLET PO SCH ×4 (05:42→22:23)
[2020-11-28] MEDS: TAMSULOSIN HCL 0.4 MG CAP PO SCH (07:35)
[2020-11-28 10:13] LABS: ALBUMIN 3.2 g/dl (3.4-5.0)
[2020-11-28 10:16] LABS: BILIRUBIN,DIRECT 1.5 mg/dL (0.0-0.2)
[2020-11-28 10:18] LABS: BILIRUBIN,TOTAL 2.2 mg/dL (0.2-1); TOT PROT 7.7 g/dl (6.4-8.2)
[2020-11-28] MEDS: LOSARTAN POTASSIUM 25 MG TABLET PO SCH (10:24)
[2020-11-28] MEDS: metoPROLOL SUCCINATE 25 MG TAB.SR.24H (FP) PO SCH ×2 (10:24→22:22)
[2020-11-28] MEDS: ALLOPURINOL 100 MG TABLET (FP) PO SCH (10:24)
[2020-11-28] MEDS: PRENATAL VITAMINS W/ FOLIC ACID TABLET (FP) PO SCH (10:24)
[2020-11-28] MEDS: ASPIRIN 81 MG CHEWABLE TABLETS PO SCH (18:07)
[2020-11-28] MEDS: THIAMINE HCL 100 MG TABLET (FP) PO SCH (22:22)
[2020-11-28] MEDS: MELATONIN 5 MG TABLETS PO SCH (22:23)
[2020-11-29] MEDS ORDERED: LORazepam 0.5 MG TABLET PO PRN
[2020-11-29] MEDS: LORazepam 0.5 MG TABLET PO SCH ×4 (05:40→23:07)
[2020-11-29] MEDS: TAMSULOSIN HCL 0.4 MG CAP PO SCH (08:03)
[2020-11-29] MEDS: LOSARTAN POTASSIUM 25 MG TABLET PO SCH (10:13)
[2020-11-29] MEDS: ALLOPURINOL 100 MG TABLET (FP) PO SCH (10:13)
[2020-11-29] MEDS: ASPIRIN 81 MG CHEWABLE TABLETS PO SCH (10:13)
[2020-11-29] MEDS: PRENATAL VITAMINS W/ FOLIC ACID TABLET (FP) PO SCH (10:13)
[2020-11-29] MEDS: metoPROLOL SUCCINATE 25 MG TAB.SR.24H (FP) PO SCH ×2 (10:13→23:06)
[2020-11-29] MEDS: IBUPROFEN 400 MG TABLET (FP) PO PRN (23:05)
[2020-11-29] MEDS: MELATONIN 5 MG TABLETS PO SCH (23:06)
[2020-11-29] MEDS: THIAMINE HCL 100 MG TABLET (FP) PO SCH (23:06)
[2020-11-30] MEDS ORDERED: LORazepam 0.5 MG TABLET PO ONE (05:00)
[2020-11-30] MEDS: ASPIRIN 81 MG CHEWABLE TABLETS PO SCH (09:38)
[2020-11-30] MEDS: metoPROLOL SUCCINATE 25 MG TAB.SR.24H (FP) PO SCH (09:38)
[2020-11-30] MEDS: TAMSULOSIN HCL 0.4 MG CAP PO SCH (09:38)
[2020-11-30] MEDS: LOSARTAN POTASSIUM 25 MG TABLET PO SCH (09:38)
[2020-11-30] MEDS: PRENATAL VITAMINS W/ FOLIC ACID TABLET (FP) PO SCH (09:38)
[2020-11-30] MEDS: ALLOPURINOL 100 MG TABLET (FP) PO SCH (09:38)
[2020-11-30 10:17] VITALS: BP 89/77; PULSE 103; TEMP 97.8
== END 2020-11-30 10:30 | disposition short-term general hospital (02) | DRG 897 ==
LOC: YASAS 15:04 → UNDOADMIN 21:57 → Y6N 21:57
PROVIDERS: ADMIT Allergy & Immunology; ATTEND Allergy & Immunology
PROC: HZ2ZZZZ Detoxification Services for Substance Abuse Treatment (ICD-10-PCS; principal; 2020-11-25)
DX: F10.230 Alcohol dependence with withdrawal, uncomplicated (principal); G40.509 Epileptic seizures related to external causes, not intractable, without status epilepticus; F12.20 Cannabis dependence, uncomplicated; I11.0 Hypertensive heart disease with heart failure; I50.9 Heart failure, unspecified; E78.5 Hyperlipidemia, unspecified; M10.9 Gout, unspecified; N40.0 Benign prostatic hyperplasia without lower urinary tract symptoms; Z87.891 Personal history of nicotine dependence; S01.01XA Laceration without foreign body of scalp, initial encounter; W18.39XA Other fall on same level, initial encounter; Y92.232 Corridor of hospital as the place of occurrence of the external cause
CPT/HCPCS: 36415; 80053; 80076; 82962; 85027; 86780; 90670; 93005; 93010; C9803; Q0162; U0003; U0005

== ENCOUNTER 2020-11-30 10:42 | Inpatient (IN) | payer BC ==
[2020-11-30 12:21] LABS: BASO % 1.3 % (0-2.0); EOS % 0.6 % (0-4.5); HEMATOCRIT 29.7 % (35.4-49); HEMOGLOBIN 10.2 GM/dL (11.7-16.9); LYMPH % 7.8 % (8-40); MCH 34.5 pg (25.7-33.7); MCHC 34.2 g/dl (32.0-35.9); MEAN CELL VOLUME 100.9 fl (80-96); MEAN PLT VOLUME 8.5 fl (7.5-11.1); MONO % 12.2 % (3.8-10.2); NEUT % 78.1 % (42.8-82.8); PLATELET COUNT 131 10^3/uL (134-434); RBC 2.95 M/mm3 (4.00-5.60); RDW 14.9 % (11.9-15.9); WHITE BLOOD COUNT 4.8 K/mm3 (4.0-10.0)
[2020-11-30] MEDS ORDERED: LORazepam 2 MG/ML SDV VIAL IVPUSH ONE ×3 (12:27→17:38)
[2020-11-30 12:34] LABS: CHLORIDE 100 mmol/L (98-107); SODIUM 131 mmol/L (136-145)
[2020-11-30] MEDS ORDERED: LORazepam 2 MG/ML SDV VIAL ONE ×3 (12:34→17:26)
[2020-11-30 12:36] LABS: CALCIUM 8.2 mg/dL (8.5-10.1)
[2020-11-30 12:37] LABS: CO2 24 mmol/L (21-32); GLUCOSE,RANDOM 128 mg/dL (74-106)
[2020-11-30 12:40] LABS: CREATININE 0.7 mg/dL (0.55-1.3); SGOT/AST 129 U/L (15-37); SGPT/ALT 53 U/L (13-61)
[2020-11-30 12:41] LABS: BILIRUBIN,TOTAL 1.6 mg/dL (0.2-1); TOT PROT 8.1 g/dl (6.4-8.2)
[2020-11-30 12:42] LABS: ALK PHOS 131 U/L (45-117)
[2020-11-30] MEDS ORDERED: IBUPROFEN 400 MG TABLET (FP) PO ONE ×2 (13:29→13:43)
[2020-11-30 13:42] LABS: ANION GAP 7 MMOL/L (8-16)
[2020-11-30] MEDS ORDERED: LIDOCAINE HCL 1%, 10 MG/ML (20ML VIAL) ONE (14:18)
[2020-11-30] MEDS ORDERED: ACETAMINOPHEN WITH CODEINE 300MG/30MG TABLET PO ONE (15:19)
[2020-11-30] MEDS ORDERED: ACETAMINOPHEN WITH CODEINE 300MG/30MG TABLET ONE (15:25)
[2020-11-30] MEDS ORDERED: metoPROLOL SUCCINATE 25 MG TAB.SR.24H (FP) PO ONE (16:54)
[2020-11-30] MEDS ORDERED: metoPROLOL SUCCINATE 25 MG TAB.SR.24H (FP) ONE (16:56)
[2020-11-30] MEDS ORDERED: HALOPERIDOL LACTATE 5 MG/ML ONE (17:22)
[2020-11-30] MEDS ORDERED: HALOPERIDOL LACTATE 5 MG/ML IM ONE (17:26)
[2020-11-30] MEDS ORDERED: LORazepam 2 MG/ML SDV VIAL IM ONE ×2 (17:27→17:32)
[2020-11-30 17:31] LABS: CALCIUM 8.6 mg/dL (8.5-10.1)
[2020-11-30 17:32] LABS: BLOOD UREA NITROGEN 20.6 mg/dL (7-18)
[2020-11-30 17:35] LABS: CREATININE 0.6 mg/dL (0.55-1.3)
[2020-11-30] MEDS ORDERED: LACTULOSE 20 GM/30 ML UDC (FOR ORAL USE ONLY) PO ONE (17:51)
[2020-11-30] MEDS ORDERED: LACTULOSE 20 GM/30 ML UDC (FOR ORAL USE ONLY) ONE ×2 (18:12→23:07)
[2020-11-30] MEDS ORDERED: DEXTROSE 50%-WATER - 25 GM/50 ML VIAL IVPUSH PRN (20:31)
[2020-11-30] MEDS ORDERED: LORazepam 2 MG/ML SDV VIAL IVPUSH PRN (20:34)
[2020-11-30] MEDS ORDERED: FOLIC ACID INJECTION - 1 MG, THIAMINE HCL 100 MG, MULTIVIT INJECTION ADULT 10 ML in SOD... IVPB ONE (20:36)
[2020-11-30] MEDS ORDERED: LACTULOSE 20 GM/30 ML UDC (FOR ORAL USE ONLY) PO SCH (22:00)
[2020-11-30] MEDS ORDERED: THIAMINE HCL 200 MG/2 ML VIAL ONE (23:07)
[2020-11-30] MEDS ORDERED: PANTOPRAZOLE SODIUM 40 MG VIAL ONE (23:08)
[2020-11-30] MEDS ORDERED: SODIUM CHLORIDE 1,000 ML IV SCH (23:15)
[2020-11-30 23:24] LABS: MAGNESIUM 1.7 mg/dL (1.8-2.4)
[2020-11-30 23:28] LABS: PHOSPHOROUS 4.4 mg/dL (2.5-4.9)
[2020-11-30] MEDS: PANTOPRAZOLE SODIUM 40 MG VIAL IVPUSH SCH (23:32)
[2020-11-30] MEDS: THIAMINE HCL 200 MG/2 ML VIAL IVPB SCH (23:32)
[2020-12-01] MEDS ORDERED: metoPROLOL SUCCINATE 25 MG TAB.SR.24H (FP) ONE (00:59)
[2020-12-01] MEDS: metoPROLOL SUCCINATE 25 MG TAB.SR.24H (FP) PO SCH ×3 (01:03→22:11)
[2020-12-01 06:52] LABS: BASO % 0.6 % (0-2.0); EOS % 0.1 % (0-4.5); HEMOGLOBIN 8.9 GM/dL (11.7-16.9); LYMPH % 4.6 % (8-40); MCH 34.6 pg (25.7-33.7); MCHC 34.2 g/dl (32.0-35.9); MEAN CELL VOLUME 101.2 fl (80-96); MEAN PLT VOLUME 8.1 fl (7.5-11.1); MONO % 8.2 % (3.8-10.2); NEUT % 86.5 % (42.8-82.8); PLATELET COUNT 154 10^3/uL (134-434); RBC 2.56 M/mm3 (4.00-5.60); RDW 14.4 % (11.9-15.9); WHITE BLOOD COUNT 9.4 K/mm3 (4.0-10.0)
[2020-12-01 07:13] LABS: INR 1.25 (0.83-1.09); PROTHROMBIN TIME (PATIENT) 15.4 SEC (9.7-13.0)
[2020-12-01 07:15] LABS: ACTIVATED PTT 27.5 SECONDS (25.2-36.5)
[2020-12-01 07:20] LABS: ALBUMIN 2.7 g/dl (3.4-5.0); MAGNESIUM 1.2 mg/dL (1.8-2.4)
[2020-12-01 07:21] LABS: BLOOD UREA NITROGEN 15.5 mg/dL (7-18)
[2020-12-01 07:24] LABS: CREATININE 0.6 mg/dL (0.55-1.3)
[2020-12-01 07:25] LABS: PHOSPHOROUS 3.4 mg/dL (2.5-4.9); TOT PROT 6.6 g/dl (6.4-8.2)
[2020-12-01 07:26] LABS: BILIRUBIN,TOTAL 1.6 mg/dL (0.2-1)
[2020-12-01 07:48] LABS: CALCIUM 7.1 mg/dL (8.5-10.1)
[2020-12-01] MEDS ORDERED: MAGNESIUM SULF 50% (8.12 MEQ/2 ML-1 GM VIAL) IVPB ONE (08:21)
[2020-12-01] MEDS: LACTULOSE 20 GM/30 ML UDC (FOR ORAL USE ONLY) PO SCH ×3 (08:25→22:12)
[2020-12-01] MEDS ORDERED: LACTULOSE 20 GM/30 ML UDC (FOR ORAL USE ONLY) ONE ×2 (08:27→13:51)
[2020-12-01] MEDS ORDERED: MAGNESIUM SULF 50% (8.12 MEQ/2 ML-1 GM VIAL) ONE (08:27)
[2020-12-01] MEDS ORDERED: LABETALOL HCL 5 MG/1 ML (100MG/20 ML VIAL) IVPB ONE (08:58)
[2020-12-01] MEDS ORDERED: LORazepam 2 MG/ML SDV VIAL IVPUSH ONE ×2 (09:26→17:32)
[2020-12-01] MEDS ORDERED: LORazepam 2 MG/ML SDV VIAL ONE (09:32)
[2020-12-01] MEDS ORDERED: LORazepam 1 MG TABLET PO PRN (09:53)
[2020-12-01] MEDS ORDERED: LABETALOL HCL 5 MG/1 ML (100MG/20 ML VIAL) IVPUSH ONE (09:54)
[2020-12-01] MEDS: amLODIPine BESYLATE 5 MG TABLET (FP) PO SCH (10:00)
[2020-12-01] MEDS: TAMSULOSIN HCL 0.4 MG CAP PO SCH (10:41)
[2020-12-01] MEDS: LOSARTAN POTASSIUM 25 MG TABLET PO SCH (10:42)
[2020-12-01] MEDS: ALLOPURINOL 100 MG TABLET (FP) PO SCH (10:42)
[2020-12-01] MEDS ORDERED: THIAMINE HCL 200 MG/2 ML VIAL ONE (10:43)
[2020-12-01] MEDS ORDERED: PANTOPRAZOLE SODIUM 40 MG/100 ML BAG IVPB ONE (10:43)
[2020-12-01] MEDS: PANTOPRAZOLE SODIUM 40 MG VIAL IVPUSH SCH (10:50)
[2020-12-01] MEDS: THIAMINE HCL 200 MG/2 ML VIAL IVPB SCH (10:50)
[2020-12-01] MEDS: LORazepam 1 MG TABLET PO SCH ×3 (11:47→22:12)
[2020-12-01 12:04] LABS: URINE APPEARANCE CLEAR; URINE BILIRUBIN NEGATIVE (NEGATIVE); URINE COLOR YELLOW; URINE GLUCOSE (UA) NEGATIVE (NEGATIVE); URINE KETONE NEGATIVE (NEGATIVE); URINE LEUK ESTERASE NEGATIVE (NEGATIVE); URINE NITRITE NEGATIVE (NEGATIVE); URINE PROTEIN TRACE (NEGATIVE)
[2020-12-01 12:20] LABS: URINE BENZODIAZEPINES NEGATIVE (NEGATIVE)
[2020-12-01 12:21] LABS: METHADONE, UR NEGATIVE (NEGATIVE); PHENCYCLIDINE,URINE NEGATIVE (NEGATIVE); URINE BARBITURATES NEGATIVE (NEGATIVE)
[2020-12-01 12:30] LABS: COCAINE, UR NEGATIVE (NEGATIVE); OPIATES, URI POSITIVE (NEGATIVE); URINE AMPHETAMINES NEGATIVE (NEGATIVE)
[2020-12-01 13:08] LABS: LACTIC ACID 2.4 mmol/L (0.4-2.0)
[2020-12-01 15:56] LABS: BASO % 0.4 % (0-2.0); EOS % 0.1 % (0-4.5); HEMATOCRIT 26.2 % (35.4-49); LYMPH % 8.9 % (8-40); MCH 34.5 pg (25.7-33.7); MCHC 34.2 g/dl (32.0-35.9); MEAN CELL VOLUME 100.9 fl (80-96); MEAN PLT VOLUME 8.2 fl (7.5-11.1); MONO % 12.3 % (3.8-10.2); NEUT % 78.3 % (42.8-82.8); PLATELET COUNT 151 10^3/uL (134-434); RDW 14.5 % (11.9-15.9); WHITE BLOOD COUNT 9.1 K/mm3 (4.0-10.0)
[2020-12-01 16:12] LABS: BLOOD UREA NITROGEN 16.2 mg/dL (7-18)
[2020-12-01 16:13] LABS: ALBUMIN 3.2 g/dl (3.4-5.0); MAGNESIUM 2.1 mg/dL (1.8-2.4)
[2020-12-01 16:16] LABS: CREATININE 0.8 mg/dL (0.55-1.3); PHOSPHOROUS 4.3 mg/dL (2.5-4.9)
[2020-12-01 16:17] LABS: BILIRUBIN,TOTAL 2.1 mg/dL (0.2-1); TOT PROT 7.6 g/dl (6.4-8.2)
[2020-12-01 16:21] LABS: CALCIUM 8.7 mg/dL (8.5-10.1)
[2020-12-01 19:31] VITALS: BMI 19.5
[2020-12-02] MEDS: LORazepam 1 MG TABLET PO SCH ×5 (06:48→22:31)
[2020-12-02] MEDS: LACTULOSE 20 GM/30 ML UDC (FOR ORAL USE ONLY) PO SCH ×3 (06:48→22:30)
[2020-12-02 07:45] LABS: HEMATOCRIT 27.6 % (35.4-49); HEMOGLOBIN 9.5 GM/dL (11.7-16.9); MCHC 34.5 g/dl (32.0-35.9); MEAN CELL VOLUME 101.5 fl (80-96); MEAN PLT VOLUME 8.8 fl (7.5-11.1); PLATELET COUNT 160 10^3/uL (134-434); RBC 2.72 M/mm3 (4.00-5.60); RDW 14.1 % (11.9-15.9); WHITE BLOOD COUNT 7.7 K/mm3 (4.0-10.0)
[2020-12-02 07:57] LABS: CALCIUM 8.3 mg/dL (8.5-10.1)
[2020-12-02 07:58] LABS: MAGNESIUM 1.9 mg/dL (1.8-2.4)
[2020-12-02 08:01] LABS: CREATININE 0.7 mg/dL (0.55-1.3); PHOSPHOROUS 3.4 mg/dL (2.5-4.9)
[2020-12-02 08:02] LABS: BILIRUBIN,TOTAL 2.3 mg/dL (0.2-1); TOT PROT 7.5 g/dl (6.4-8.2)
[2020-12-02] MEDS ORDERED: LORazepam 2 MG/ML SDV VIAL IVPUSH PRN (08:09)
[2020-12-02] MEDS: LOSARTAN POTASSIUM 25 MG TABLET PO SCH ×2 (11:05→12:40)
[2020-12-02] MEDS: TAMSULOSIN HCL 0.4 MG CAP PO SCH ×2 (11:05→12:39)
[2020-12-02] MEDS: metoPROLOL SUCCINATE 25 MG TAB.SR.24H (FP) PO SCH ×3 (11:06→22:30)
[2020-12-02] MEDS: amLODIPine BESYLATE 5 MG TABLET (FP) PO SCH ×2 (11:06→12:39)
[2020-12-02] MEDS: ALLOPURINOL 100 MG TABLET (FP) PO SCH ×2 (11:06→12:40)
[2020-12-02] MEDS: THIAMINE HCL 200 MG/2 ML VIAL IVPB SCH ×2 (11:21→11:36)
[2020-12-02] MEDS: ENOXAPARIN NA (PORCINE) 40 MG/0.4 ML DISP.SYRIN SQ SCH (11:23)
[2020-12-02] MEDS: PANTOPRAZOLE SODIUM 40 MG VIAL IVPUSH SCH ×2 (11:33→11:35)
[2020-12-02] MEDS ORDERED: PT OWN MED DRAWER 7, Y5N ONE (14:42)
[2020-12-02] MEDS: THIAMINE HCL IVPB SCH (14:45)
[2020-12-02] MEDS: AMINO ACIDS IVPB SCH (14:45)
[2020-12-02] MEDS: FOLIC ACID IVPB SCH (14:45)
[2020-12-02] MEDS: [UNRECOGNIZED DRUG - OTHER] IVPB SCH (14:45)
[2020-12-02] MEDS ORDERED: LABETALOL HCL 5 MG/1 ML (100MG/20 ML VIAL) IVPUSH PRN (17:18)
[2020-12-03] MEDS: LACTULOSE 20 GM/30 ML UDC (FOR ORAL USE ONLY) PO SCH (06:14)
[2020-12-03] MEDS: LORazepam 1 MG TABLET PO SCH ×4 (06:14→22:27)
[2020-12-03 06:39] LABS: HEMATOCRIT 28.3 % (35.4-49); HEMOGLOBIN 9.6 GM/dL (11.7-16.9); MCH 34.9 pg (25.7-33.7); MEAN CELL VOLUME 102.6 fl (80-96); MEAN PLT VOLUME 8.9 fl (7.5-11.1); PLATELET COUNT 174 10^3/uL (134-434); RBC 2.76 M/mm3 (4.00-5.60); RDW 14.1 % (11.9-15.9); WHITE BLOOD COUNT 8.2 K/mm3 (4.0-10.0)
[2020-12-03 07:06] LABS: ALBUMIN 3.1 g/dl (3.4-5.0); CALCIUM 8.6 mg/dL (8.5-10.1)
[2020-12-03 07:07] LABS: BLOOD UREA NITROGEN 18.7 mg/dL (7-18); MAGNESIUM 1.8 mg/dL (1.8-2.4)
[2020-12-03 07:10] LABS: CREATININE 0.6 mg/dL (0.55-1.3); PHOSPHOROUS 2.6 mg/dL (2.5-4.9)
[2020-12-03 07:11] LABS: BILIRUBIN,TOTAL 2.2 mg/dL (0.2-1); TOT PROT 7.8 g/dl (6.4-8.2)
[2020-12-03] MEDS ORDERED: SODIUM CHLORIDE 1,000 ML IV SCH (08:00)
[2020-12-03] MEDS ORDERED: amLODIPine BESYLATE 5 MG TABLET (FP) PO ONE (08:12)
[2020-12-03] MEDS ORDERED: HYDROCHLOROTHIAZIDE 12.5 MG CAPSULE (FP) PO SCH (10:00)
[2020-12-03] MEDS: LOSARTAN POTASSIUM 25 MG TABLET PO SCH (10:01)
[2020-12-03] MEDS: metoPROLOL SUCCINATE 25 MG TAB.SR.24H (FP) PO SCH ×2 (10:01→21:06)
[2020-12-03] MEDS: PANTOPRAZOLE SODIUM 40 MG VIAL IVPUSH SCH (10:02)
[2020-12-03] MEDS: TAMSULOSIN HCL 0.4 MG CAP PO SCH (10:02)
[2020-12-03] MEDS: ALLOPURINOL 100 MG TABLET (FP) PO SCH (10:02)
[2020-12-03] MEDS: ENOXAPARIN NA (PORCINE) 40 MG/0.4 ML DISP.SYRIN SQ SCH (10:23)
[2020-12-03] MEDS ORDERED: SODIUM PHOSPHATE - 30 MM in SODIUM CHLORIDE 250 ML IVPB ONE (13:00)
[2020-12-03] MEDS ORDERED: PT OWN MED DRAWER 7, Y5N ONE (17:40)
[2020-12-03] MEDS: AMINO ACIDS IVPB SCH (18:00)
[2020-12-03] MEDS: THIAMINE HCL IVPB SCH (18:00)
[2020-12-03] MEDS: [UNRECOGNIZED DRUG - OTHER] IVPB SCH (18:00)
[2020-12-03] MEDS: FOLIC ACID IVPB SCH (18:00)
[2020-12-03] MEDS: amLODIPine BESYLATE 5 MG TABLET (FP) PO SCH (21:07)
[2020-12-04] MEDS: LORazepam 0.5 MG TABLET PO PRN ×2 (05:37→21:28)
[2020-12-04] MEDS: LORazepam 0.5 MG TABLET PO SCH ×4 (05:37→22:11)
[2020-12-04 08:02] LABS: HEMATOCRIT 25.8 % (35.4-49); HEMOGLOBIN 8.9 GM/dL (11.7-16.9); MCH 34.7 pg (25.7-33.7); MCHC 34.7 g/dl (32.0-35.9); MEAN CELL VOLUME 100.2 fl (80-96); MEAN PLT VOLUME 9.6 fl (7.5-11.1); PLATELET COUNT 203 10^3/uL (134-434); RBC 2.57 M/mm3 (4.00-5.60); RDW 13.6 % (11.9-15.9); WHITE BLOOD COUNT 7.6 K/mm3 (4.0-10.0)
[2020-12-04 08:05] LABS: EPI CELLS 2 /uL (0-25.1); HYALINE CASTS 0 /uL (0-3.1); PH,URINE 6.5 (5.0-8.0); URINE APPEARANCE CLEAR; URINE BACTERIA 758 /uL (0-1359); URINE BILIRUBIN NEGATIVE (NEGATIVE); URINE COLOR DK YELLOW; URINE GLUCOSE (UA) NEGATIVE (NEGATIVE); URINE KETONE NEGATIVE (NEGATIVE); URINE LEUK ESTERASE TRACE (NEGATIVE); URINE NITRITE NEGATIVE (NEGATIVE); URINE PROTEIN TRACE (NEGATIVE); URINE RBC 14 /uL (0-23.9); URINE WBC 5 /uL (0-25.8)
[2020-12-04 08:17] LABS: ALBUMIN 2.6 g/dl (3.4-5.0); CALCIUM 8.5 mg/dL (8.5-10.1)
[2020-12-04 08:18] LABS: BLOOD UREA NITROGEN 15.8 mg/dL (7-18)
[2020-12-04 08:20] LABS: MAGNESIUM 1.5 mg/dL (1.8-2.4)
[2020-12-04 08:21] LABS: CREATININE 0.5 mg/dL (0.55-1.3); PHOSPHOROUS 3.2 mg/dL (2.5-4.9)
[2020-12-04 08:22] LABS: BILIRUBIN,TOTAL 1.9 mg/dL (0.2-1); TOT PROT 7.1 g/dl (6.4-8.2)
[2020-12-04] MEDS: TAMSULOSIN HCL 0.4 MG CAP PO SCH (08:43)
[2020-12-04] MEDS: LORazepam 2 MG/ML SDV VIAL IVPUSH PRN (09:05)
[2020-12-04] MEDS: metoPROLOL SUCCINATE 25 MG TAB.SR.24H (FP) PO SCH ×2 (11:08→21:29)
[2020-12-04] MEDS: ENOXAPARIN NA (PORCINE) 40 MG/0.4 ML DISP.SYRIN SQ SCH (11:08)
[2020-12-04] MEDS: LOSARTAN POTASSIUM 25 MG TABLET PO SCH (11:08)
[2020-12-04] MEDS: ALLOPURINOL 100 MG TABLET (FP) PO SCH (11:08)
[2020-12-04] MEDS: PANTOPRAZOLE SODIUM 40 MG VIAL IVPUSH SCH (11:08)
[2020-12-04] MEDS: AMINO ACIDS IVPB SCH (13:00)
[2020-12-04] MEDS: FOLIC ACID IVPB SCH (13:00)
[2020-12-04] MEDS: [UNRECOGNIZED DRUG - OTHER] IVPB SCH (13:00)
[2020-12-04] MEDS: THIAMINE HCL IVPB SCH (13:00)
[2020-12-04] MEDS ORDERED: MAGNESIUM SULF 50% (8.12 MEQ/2 ML-1 GM VIAL) IVPB ONE (16:04)
[2020-12-04] MEDS ORDERED: SODIUM PHOSPHATE - 0 MM in SODIUM CHLORIDE 250 ML IVPB ONE (16:04)
[2020-12-04] MEDS: amLODIPine BESYLATE 5 MG TABLET (FP) PO SCH (21:29)
[2020-12-05] MEDS ORDERED: LORazepam 0.5 MG TABLET PO ONE (05:00)
[2020-12-05 06:30] LABS: HEMATOCRIT 28.8 % (35.4-49); HEMOGLOBIN 9.8 GM/dL (11.7-16.9); MCH 34.3 pg (25.7-33.7); MCHC 33.9 g/dl (32.0-35.9); MEAN CELL VOLUME 101.2 fl (80-96); PLATELET COUNT 204 10^3/uL (134-434); RBC 2.85 M/mm3 (4.00-5.60); RDW 13.8 % (11.9-15.9); WHITE BLOOD COUNT 8.1 K/mm3 (4.0-10.0)
[2020-12-05 06:49] LABS: CALCIUM 8.6 mg/dL (8.5-10.1)
[2020-12-05 06:50] LABS: ALBUMIN 2.7 g/dl (3.4-5.0); BLOOD UREA NITROGEN 16.3 mg/dL (7-18)
[2020-12-05 06:53] LABS: CREATININE 0.6 mg/dL (0.55-1.3); PHOSPHOROUS 3.5 mg/dL (2.5-4.9)
[2020-12-05 06:55] LABS: BILIRUBIN,TOTAL 2.4 mg/dL (0.2-1); TOT PROT 7.7 g/dl (6.4-8.2)
[2020-12-05] MEDS ORDERED: PT OWN MED DRAWER 7, Y5N ONE (09:37)
[2020-12-05] MEDS: ENOXAPARIN NA (PORCINE) 40 MG/0.4 ML DISP.SYRIN SQ SCH (09:41)
[2020-12-05] MEDS: ALLOPURINOL 100 MG TABLET (FP) PO SCH (09:41)
[2020-12-05] MEDS: LOSARTAN POTASSIUM 25 MG TABLET PO SCH (09:41)
[2020-12-05] MEDS: metoPROLOL SUCCINATE 25 MG TAB.SR.24H (FP) PO SCH ×2 (09:41→21:07)
[2020-12-05] MEDS: PANTOPRAZOLE SODIUM 40 MG VIAL IVPUSH SCH (09:42)
[2020-12-05] MEDS: TAMSULOSIN HCL 0.4 MG CAP PO SCH (09:42)
[2020-12-05 09:56] LABS: ALBUMIN 2.8 g/dl (3.4-5.0)
[2020-12-05 09:57] LABS: BLOOD UREA NITROGEN 17.8 mg/dL (7-18)
[2020-12-05 10:00] LABS: CREATININE 0.6 mg/dL (0.55-1.3)
[2020-12-05 10:01] LABS: BILIRUBIN,TOTAL 2.2 mg/dL (0.2-1); TOT PROT 7.7 g/dl (6.4-8.2)
[2020-12-05] MEDS ORDERED: MAGNESIUM OXIDE 400 MG TABLET (FP) PO ONE (10:15)
[2020-12-05] MEDS ORDERED: SODIUM CHLORIDE 1,000 ML IV SCH (12:30)
[2020-12-05] MEDS: DEXTROSE 5%-NORMAL SALINE 1,000 ML IV SCH (12:43)
[2020-12-05] MEDS: AMINO ACIDS IVPB SCH (14:30)
[2020-12-05] MEDS: [UNRECOGNIZED DRUG - OTHER] IVPB SCH (14:30)
[2020-12-05] MEDS: FOLIC ACID IVPB SCH (14:30)
[2020-12-05] MEDS: THIAMINE HCL IVPB SCH (14:30)
[2020-12-05] MEDS: amLODIPine BESYLATE 5 MG TABLET (FP) PO SCH (21:06)
[2020-12-06 09:51] LABS: HEMATOCRIT 27.3 % (35.4-49); HEMOGLOBIN 9.6 GM/dL (11.7-16.9); MCH 34.9 pg (25.7-33.7); MCHC 35.2 g/dl (32.0-35.9); MEAN CELL VOLUME 99.2 fl (80-96); MEAN PLT VOLUME 9.3 fl (7.5-11.1); PLATELET COUNT 291 10^3/uL (134-434); RBC 2.75 M/mm3 (4.00-5.60); RDW 13.7 % (11.9-15.9); WHITE BLOOD COUNT 9.3 K/mm3 (4.0-10.0)
[2020-12-06] MEDS: PANTOPRAZOLE SODIUM 40 MG VIAL IVPUSH SCH (09:58)
[2020-12-06] MEDS: LOSARTAN POTASSIUM 25 MG TABLET PO SCH (09:58)
[2020-12-06] MEDS: ALLOPURINOL 100 MG TABLET (FP) PO SCH (09:58)
[2020-12-06] MEDS: THIAMINE HCL 200 MG/2 ML VIAL IVPB SCH (09:58)
[2020-12-06] MEDS: FOLIC ACID 1 MG TABLET (FP) PO SCH (09:58)
[2020-12-06] MEDS: TAMSULOSIN HCL 0.4 MG CAP PO SCH (09:58)
[2020-12-06] MEDS: metoPROLOL SUCCINATE 25 MG TAB.SR.24H (FP) PO SCH ×2 (09:58→21:16)
[2020-12-06] MEDS: ENOXAPARIN NA (PORCINE) 40 MG/0.4 ML DISP.SYRIN SQ SCH (09:58)
[2020-12-06] MEDS: DEXTROSE 5%-NORMAL SALINE 1,000 ML IV SCH ×2 (09:59→16:14)
[2020-12-06 10:15] LABS: CALCIUM 8.1 mg/dL (8.5-10.1)
[2020-12-06 10:16] LABS: ALBUMIN 2.6 g/dl (3.4-5.0); BLOOD UREA NITROGEN 12.4 mg/dL (7-18); MAGNESIUM 1.3 mg/dL (1.8-2.4)
[2020-12-06 10:19] LABS: PHOSPHOROUS 3.4 mg/dL (2.5-4.9)
[2020-12-06 10:20] LABS: BILIRUBIN,TOTAL 2.4 mg/dL (0.2-1)
[2020-12-06 10:21] LABS: TOT PROT 7.7 g/dl (6.4-8.2)
[2020-12-06 10:31] LABS: CREATININE 0.5 mg/dL (0.55-1.3)
[2020-12-06] MEDS ORDERED: MAGNESIUM SULF 50% (8.12 MEQ/2 ML-1 GM VIAL) IVPB ONE ×2 (11:51→12:00)
[2020-12-06] MEDS ORDERED: SENNOSIDES 8.8 MG/5 ML BULK BOTTLE PO PRN (12:11)
[2020-12-06] MEDS ORDERED: POLYETHYLENE GLYCOL (HEALTHYLAX) 3350 17 GM PACKET PO PRN (12:11)
[2020-12-06] MEDS: MAGNESIUM OXIDE 400 MG TABLET (FP) PO SCH (21:16)
[2020-12-06] MEDS: amLODIPine BESYLATE 5 MG TABLET (FP) PO SCH (21:16)
[2020-12-07 08:42] LABS: HEMATOCRIT 29.2 % (35.4-49); HEMOGLOBIN 10.1 GM/dL (11.7-16.9); MCH 34.4 pg (25.7-33.7); MCHC 34.7 g/dl (32.0-35.9); MEAN CELL VOLUME 99.3 fl (80-96); MEAN PLT VOLUME 9.5 fl (7.5-11.1); PLATELET COUNT 306 10^3/uL (134-434); RBC 2.94 M/mm3 (4.00-5.60); RDW 13.8 % (11.9-15.9); WHITE BLOOD COUNT 10.5 K/mm3 (4.0-10.0)
[2020-12-07 09:05] LABS: ALBUMIN 2.9 g/dl (3.4-5.0); CALCIUM 8.9 mg/dL (8.5-10.1); MAGNESIUM 1.9 mg/dL (1.8-2.4)
[2020-12-07 09:09] LABS: CREATININE 0.5 mg/dL (0.55-1.3)
[2020-12-07 09:10] LABS: PHOSPHOROUS 3.8 mg/dL (2.5-4.9); TOT PROT 8.4 g/dl (6.4-8.2)
[2020-12-07] MEDS: PANTOPRAZOLE SODIUM 40 MG VIAL IVPUSH SCH (09:10)
[2020-12-07] MEDS: ALLOPURINOL 100 MG TABLET (FP) PO SCH (09:10)
[2020-12-07] MEDS: FOLIC ACID 1 MG TABLET (FP) PO SCH (09:10)
[2020-12-07] MEDS: metoPROLOL SUCCINATE 25 MG TAB.SR.24H (FP) PO SCH ×2 (09:10→22:07)
[2020-12-07] MEDS: LOSARTAN POTASSIUM 25 MG TABLET PO SCH (09:10)
[2020-12-07] MEDS: THIAMINE HCL 200 MG/2 ML VIAL IVPB SCH (09:11)
[2020-12-07] MEDS: MAGNESIUM OXIDE 400 MG TABLET (FP) PO SCH ×2 (09:11→22:07)
[2020-12-07] MEDS: ENOXAPARIN NA (PORCINE) 40 MG/0.4 ML DISP.SYRIN SQ SCH (09:11)
[2020-12-07] MEDS: TAMSULOSIN HCL 0.4 MG CAP PO SCH (09:11)
[2020-12-07] MEDS ORDERED: POLYETHYLENE GLYCOL (HEALTHYLAX) 3350 17 GM PACKET PO ONE (12:12)
[2020-12-07] MEDS: DEXTROSE 5%-NORMAL SALINE 1,000 ML IV SCH (17:05)
[2020-12-07] MEDS: amLODIPine BESYLATE 5 MG TABLET (FP) PO SCH (22:07)
[2020-12-08] MEDS: LORazepam 2 MG/ML SDV VIAL IVPUSH PRN (01:35)
[2020-12-08] MEDS: THIAMINE HCL 200 MG/2 ML VIAL IVPB SCH (09:01)
[2020-12-08] MEDS: MAGNESIUM OXIDE 400 MG TABLET (FP) PO SCH ×2 (09:01→21:29)
[2020-12-08] MEDS: ENOXAPARIN NA (PORCINE) 40 MG/0.4 ML DISP.SYRIN SQ SCH (09:01)
[2020-12-08] MEDS: ALLOPURINOL 100 MG TABLET (FP) PO SCH (09:01)
[2020-12-08] MEDS: PANTOPRAZOLE SODIUM 40 MG VIAL IVPUSH SCH (09:01)
[2020-12-08] MEDS: FOLIC ACID 1 MG TABLET (FP) PO SCH (09:01)
[2020-12-08] MEDS: metoPROLOL SUCCINATE 25 MG TAB.SR.24H (FP) PO SCH (09:01)
[2020-12-08] MEDS: TAMSULOSIN HCL 0.4 MG CAP PO SCH (09:01)
[2020-12-08] MEDS: LOSARTAN POTASSIUM 25 MG TABLET PO SCH (09:01)
[2020-12-08] MEDS ORDERED: metoPROLOL SUCCINATE 25 MG TAB.SR.24H (FP) PO ONE (09:52)
[2020-12-08] MEDS ORDERED: metoPROLOL SUCCINATE 25 MG TAB.SR.24H (FP) PO SCH (10:00)
[2020-12-08 11:12] LABS: HEMATOCRIT 26.4 % (35.4-49); HEMOGLOBIN 9.2 GM/dL (11.7-16.9); MCH 34.1 pg (25.7-33.7); MCHC 34.9 g/dl (32.0-35.9); MEAN CELL VOLUME 97.7 fl (80-96); PLATELET COUNT 291 10^3/uL (134-434); RDW 13.9 % (11.9-15.9); WHITE BLOOD COUNT 8.8 K/mm3 (4.0-10.0)
[2020-12-08 11:43] LABS: ALBUMIN 2.4 g/dl (3.4-5.0); BLOOD UREA NITROGEN 10.8 mg/dL (7-18); CALCIUM 7.7 mg/dL (8.5-10.1); MAGNESIUM 1.1 mg/dL (1.8-2.4)
[2020-12-08 11:46] LABS: CREATININE 0.5 mg/dL (0.55-1.3)
[2020-12-08 11:47] LABS: PHOSPHOROUS 2.9 mg/dL (2.5-4.9)
[2020-12-08 11:48] LABS: BILIRUBIN,TOTAL 2.4 mg/dL (0.2-1); TOT PROT 7.4 g/dl (6.4-8.2)
[2020-12-08] MEDS ORDERED: MAGNESIUM SULF 50% (8.12 MEQ/2 ML-1 GM VIAL) IVPB ONE (12:00)
[2020-12-08] MEDS ORDERED: MAGNESIUM OXIDE 400 MG TABLET (FP) PO SCH (12:00)
[2020-12-08] MEDS ORDERED: GLYCOPYRROLATE 1 MG/5 ML VIAL IVPB ONE (17:43)
[2020-12-08] MEDS: DEXTROSE 5%-NORMAL SALINE 1,000 ML IV SCH (18:26)
[2020-12-08] MEDS ORDERED: ACETAMINOPHEN 325 MG TABLET (FP) PO PRN ×2 (18:43→18:46)
[2020-12-08] MEDS ORDERED: QUEtiapine FUMARATE 25 MG TABLET ONE (21:27)
[2020-12-08] MEDS: amLODIPine BESYLATE 5 MG TABLET (FP) PO SCH (21:29)
[2020-12-08] MEDS: QUEtiapine FUMARATE 50 MG TABLET PO SCH (21:29)
[2020-12-09] MEDS ORDERED: IBUPROFEN 600 MG TABLET (FP) PO PRN (08:27)
[2020-12-09] MEDS ORDERED: IBUPROFEN 600 MG TABLET (FP) PO ONE (08:45)
[2020-12-09] MEDS: DEXTROSE 5%-NORMAL SALINE 1,000 ML IV SCH ×2 (08:52→20:23)
[2020-12-09] MEDS: TAMSULOSIN HCL 0.4 MG CAP PO SCH (08:52)
[2020-12-09] MEDS: ALLOPURINOL 100 MG TABLET (FP) PO SCH (09:05)
[2020-12-09] MEDS: MULTIVITAMINS (DAILY MVI) TABLET (FP) PO SCH (09:05)
[2020-12-09] MEDS: LOSARTAN POTASSIUM 25 MG TABLET PO SCH (09:05)
[2020-12-09] MEDS: MAGNESIUM OXIDE 400 MG TABLET (FP) PO SCH ×2 (09:05→21:22)
[2020-12-09] MEDS: FOLIC ACID 1 MG TABLET (FP) PO SCH (09:05)
[2020-12-09] MEDS: PANTOPRAZOLE SODIUM 40 MG VIAL IVPUSH SCH (09:07)
[2020-12-09] MEDS: THIAMINE HCL 200 MG/2 ML VIAL IVPB SCH (09:09)
[2020-12-09] MEDS: POLYETHYLENE GLYCOL (HEALTHYLAX) 3350 17 GM PACKET PO SCH (09:10)
[2020-12-09 10:47] LABS: HEMATOCRIT 27.7 % (35.4-49); HEMOGLOBIN 9.5 GM/dL (11.7-16.9); MCHC 34.3 g/dl (32.0-35.9); MEAN CELL VOLUME 99.3 fl (80-96); MEAN PLT VOLUME 9.1 fl (7.5-11.1); PLATELET COUNT 352 10^3/uL (134-434); RBC 2.79 M/mm3 (4.00-5.60); WHITE BLOOD COUNT 9.5 K/mm3 (4.0-10.0)
[2020-12-09 11:12] LABS: CALCIUM 8.2 mg/dL (8.5-10.1)
[2020-12-09 11:13] LABS: ALBUMIN 2.5 g/dl (3.4-5.0); MAGNESIUM 1.5 mg/dL (1.8-2.4)
[2020-12-09 11:16] LABS: CREATININE 0.6 mg/dL (0.55-1.3); PHOSPHOROUS 2.8 mg/dL (2.5-4.9)
[2020-12-09 11:17] LABS: BILIRUBIN,TOTAL 2.2 mg/dL (0.2-1)
[2020-12-09 11:18] LABS: TOT PROT 7.8 g/dl (6.4-8.2)
[2020-12-09] MEDS ORDERED: MAGNESIUM SULF 50% (8.12 MEQ/2 ML-1 GM VIAL) IVPB ONE (12:30)
[2020-12-09] MEDS: ENOXAPARIN NA (PORCINE) 40 MG/0.4 ML DISP.SYRIN SQ SCH (14:27)
[2020-12-09 17:09] LABS: FREE KAPPA,SERUM 35.8 mg/L (3.3-19.4)
[2020-12-09 17:15] LABS: VENOUS BASE EXCESS -6.4 mmol/L (-2-2); VENOUS O2 SATURATION 76.3 % (70-80); VENOUS PCO2 35.6 mmHg (38-52); VENOUS PH 7.338 (7.310-7.410)
[2020-12-09] MEDS ORDERED: IBUPROFEN 400 MG TABLET (FP) PO ONE (20:46)
[2020-12-09] MEDS ORDERED: QUEtiapine FUMARATE 25 MG TABLET ONE (21:16)
[2020-12-09] MEDS: amLODIPine BESYLATE 5 MG TABLET (FP) PO SCH (21:22)
[2020-12-09] MEDS: QUEtiapine FUMARATE 50 MG TABLET PO SCH (21:23)
[2020-12-10] MEDS ORDERED: IBUPROFEN 600 MG TABLET (FP) PO PRN ×2 (07:16→07:18)
[2020-12-10] MEDS: TAMSULOSIN HCL 0.4 MG CAP PO SCH (08:39)
[2020-12-10 09:32] LABS: HEMOGLOBIN 8.7 GM/dL (11.7-16.9); MCH 34.5 pg (25.7-33.7); MCHC 34.6 g/dl (32.0-35.9); MEAN CELL VOLUME 99.6 fl (80-96); MEAN PLT VOLUME 9.2 fl (7.5-11.1); PLATELET COUNT 315 10^3/uL (134-434); RBC 2.51 M/mm3 (4.00-5.60); RDW 14.1 % (11.9-15.9); WHITE BLOOD COUNT 7.7 K/mm3 (4.0-10.0)
[2020-12-10 10:01] LABS: CALCIUM 8.1 mg/dL (8.5-10.1)
[2020-12-10 10:02] LABS: ALBUMIN 2.4 g/dl (3.4-5.0); BLOOD UREA NITROGEN 12.8 mg/dL (7-18); MAGNESIUM 1.7 mg/dL (1.8-2.4)
[2020-12-10 10:05] LABS: CREATININE 0.6 mg/dL (0.55-1.3); PHOSPHOROUS 2.3 mg/dL (2.5-4.9)
[2020-12-10 10:06] LABS: BILIRUBIN,TOTAL 1.8 mg/dL (0.2-1); TOT PROT 7.1 g/dl (6.4-8.2)
[2020-12-10] MEDS: FOLIC ACID 1 MG TABLET (FP) PO SCH (10:08)
[2020-12-10] MEDS: POLYETHYLENE GLYCOL (HEALTHYLAX) 3350 17 GM PACKET PO SCH (10:08)
[2020-12-10] MEDS: PANTOPRAZOLE SODIUM 40 MG VIAL IVPUSH SCH (10:08)
[2020-12-10] MEDS: ALLOPURINOL 100 MG TABLET (FP) PO SCH (10:08)
[2020-12-10] MEDS: MAGNESIUM OXIDE 400 MG TABLET (FP) PO SCH (10:08)
[2020-12-10] MEDS: THIAMINE HCL 200 MG/2 ML VIAL IVPB SCH (10:08)
[2020-12-10] MEDS: LOSARTAN POTASSIUM 25 MG TABLET PO SCH (10:08)
[2020-12-10] MEDS: MULTIVITAMINS (DAILY MVI) TABLET (FP) PO SCH (10:08)
[2020-12-10] MEDS: ENOXAPARIN NA (PORCINE) 40 MG/0.4 ML DISP.SYRIN SQ SCH (10:09)
[2020-12-10] MEDS ORDERED: MAGNESIUM SULF 50% (8.12 MEQ/2 ML-1 GM VIAL) IVPB ONE (11:31)
[2020-12-10 13:51] VITALS: BP 112/64; PULSE 82; TEMP 98.7
== END 2020-12-10 18:00 | DRG 101 ==
LOC: JER 10:42 → JERBED 15:53 → OBSVTOIN 20:27 → J4S 12-01 15:31
PROVIDERS: ADMIT Internal Medicine; ATTEND Internal Medicine
PROC: HZ2ZZZZ Detoxification Services for Substance Abuse Treatment (ICD-10-PCS; principal; 2020-11-30)
PROC: 0HQ0XZZ Repair Scalp Skin, External Approach (ICD-10-PCS; 2020-11-30)
DX: R56.9 Unspecified convulsions (principal); F10.239 Alcohol dependence with withdrawal, unspecified; E87.1 Hypo-osmolality and hyponatremia; E83.42 Hypomagnesemia; K70.10 Alcoholic hepatitis without ascites; S01.01XA Laceration without foreign body of scalp, initial encounter; E87.5 Hyperkalemia; K72.90 Hepatic failure, unspecified without coma; I10 Essential (primary) hypertension; E78.5 Hyperlipidemia, unspecified; K76.0 Fatty (change of) liver, not elsewhere classified; N40.0 Benign prostatic hyperplasia without lower urinary tract symptoms; R74.01 Elevation of levels of liver transaminase levels; M10.9 Gout, unspecified; I16.0 Hypertensive urgency; W19.XXXA Unspecified fall, initial encounter; Y93.9 Activity, unspecified; Y92.89 Other specified places as the place of occurrence of the external cause; Y99.9 Unspecified external cause status
CPT/HCPCS: 36415; 70450-TC; 71045-TC-FY; 72125-TC; 76705-TC; 80048; 80053; 80061; 80307; 81003; 82140; 82436; 82550; 82553; 82803; 82962; 83036; 83605; 83735; 83883; 83930; 83935; 84100; 84133; 84155; 84165; 84300; 84484; 85025; 85027; 85610; 85730; 86706; 87340; 87517; 87522; 93005; 93010; 97116-GP; 97161-GP; 99285-25; C9803; G0378; U0003; U0005